=== PATIENT | female | born 1995 | race Caucasian/White ===

== ENCOUNTER 2020-05-07 17:59 | Emergency (ER) | payer OTHER, SELFPAY ==
[2020-05-07 18:11] VITALS: BP 142/84; BP 181/117; PULSE 100; PULSE 113; RESP 15; TEMP 36.7; O2SAT 95; O2SAT 97; BMI 24.2
--- NOTE | 2020-05-07 18:57 | XR_ITS ---
EXAMINATION: CHEST 1 VIEW CLINICAL INFORMATION: Wheezing. COMPARISON: December 16, 2019. TECHNIQUE: An AP view of the chest is provided. FINDINGS: The cardiac silhouette is not enlarged. The mediastinal and hilar contours are unremarkable. There are neither pleural effusions nor pneumothoraces. There are no consolidations. The osseous structures are unremarkable. XR/XR chest 1V IMPRESSION: No evidence for acute disease.
--- NOTE | 2020-05-07 19:09 | ECG_ITS ---
Test Reason : SOB Blood Pressure : / mmHG Vent. Rate : 117 BPM Atrial Rate : 117 BPM P-R Int : 122 ms QRS Dur : 072 ms QT Int : 326 ms P-R-T Axes : 052 043 045 degrees QTc Int : 454 ms Artifact in tracing Sinus tachycardia Otherwise normal ECG No previous ECGs available Referred By: Cruz Hall Electronically Signed By:BEBO MILLIGAN
[2020-05-07] MEDS: Albuterol/Iprat 2.5/0.5MG 3 ML AMPUL.NEB INHALE (19:31)
[2020-05-07 19:32] VITALS: PULSE 120; O2SAT 96
--- NOTE | 2020-05-07 19:35 | ED_ITS ---
HPI - Weakness General Chief complaint: Weakness Stated complaint: COVID+/HEADACHE? Time Seen by Provider: 05/07/20 18:35 Source: patient Mode of arrival: ambulatory Limitations: no limitations History of Present Illness HPI Narrative: Patient presents to ED for URI symptoms for 1 week. Patient states coughing, shortness of breath, wheezing, and chills. Patient states no history of asthma. Patient denies anyone else at home having similar symptoms. Patient states she was admitted last month for pneumonia. Related Data Previous Rx's Medication Instructions Recorded albuterol sulfate 2 puff INHALATION Q6H PRN #18 g 05/07/20 lisinopril-hydrochlorothiazide 1 tab PO DAILY #30 tab 05/07/20 Allergies Allergy/AdvReac Type Severity Reaction Status Date / Time No Known Allergies Allergy Unverified 02/13/20 18:32 [No Known Allergies*] Review of Systems Review of Systems: Yes all other systems are reviewed and are negative Constitutional: Constitutional: Reports as per HPI, Reports no additional co nstitutional complaints and Reports chills Eyes: Eyes: Reports as per HPI and Reports no additional eye complaints ENT: Reports system reviewed and no additional complaints, except as documented and Reports as per HPI Cardiovascular: Cardiovascular: Reports as per HPI, Reports no additional ca rdiovascular complaints and Reports dyspnea Respiratory: Respiratory: Reports as per HPI, Reports no additional respiratory complaints, Reports cough, Denies pain on inspiration, Reports dyspnea and Reports wheezing Gastrointestinal: Gastrointestinal: Reports as per HPI and Reports no additional gastrointestinal complaints Musculoskeletal: Musculoskeletal: Reports no additional musculoskeletal c omplaints and Reports as per HPI Neurologic: Reports system reviewed and no additional complaints, except as documented and Reports as per HPI Psychiatric: Psychiatric: Reports no additional psychiatric complaints and Reports as per HPI Allergic/Immunologic: Allergic/Immunologic: Reports wheezing PMF Social History Social History Alcohol intake: current Alcohol intake frequency: holidays/special occasions only Smoking Status: Current every day smoker Smoked in Last 30 Days: Yes Use of substances other than those prescribed or required for medical reasons: No Advance Directives: No Advance Directives Information Provided: Yes Physical Exam Vital Signs: Vital Signs: Last Vital Signs Temp 97.8 F 05/07/20 19:52 Pulse 114 H 05/07/20 22:59 Resp 15 05/07/20 22:59 BP 152/87 H 05/07/20 22:59 Pulse Ox 93 05/07/20 22:59 Body Mass Index 24.2 Const: General: cooperative, healthy appearing, comfortable, no acute distress, well developed, alert, awake and Physically active Ophelia ation/consciousness: patient oriented x3 HENMT: Head: Yes normal to inspection and Yes No palpable skull fracture present Eyes: General: appearance normal, both eyes and all related structures Neck: Neck: Yes normal visual inspection, Yes full ROM, Yes no lymphadenopathy, Yes no meningeal signs, Yes trachea midline, Yes supple and No tender Chest: Chest palpation & inspection: normal inspection of the chest, normal palpation of entire chest wall and no localized rib tenderness Resp: Effort & Inspection: normal respiratory effort, able to speak in complete sentences, no grunting, not labored, no nasal flaring, no paradoxical thoraco-abdom movements and no pursed lip breathing Auscultation: wheezes (diffuse) expiratory wheezes Cardio: Jugular venous distension: no JVD Heart sounds: S1 normal heart sound present and S2 normal heart sound present GI: Inspection: Yes normal to inspection and No abdominal wall ecchymosis Palpation (GI): Soft to palpation, not firm, nontender, no guarding and not rigid : General: No CVA tenderness Back/Spine/Pelvis: Back: no CVA tenderness, No CVA tenderness and No back tenderness Skin: General skin exam: no rashes or lesions noted Neuro: Other: Negative for facial droop. Negative pronator drift. Speech is normal. Motor and strength of all extremities are equal. Negative Romberg. finger to nose and rapid hand movement is intact. General: patient oriented x3, no meningeal signs and CN's II-XI intact bilaterally Cranial nerves: Yes CN's II-XII intact bilaterally Extrem: Other: Lower extremity negative for swelling, pitting edema, calf tenderness. General: Yes normal to inspection and Yes full ROM Psych: Appearance: grossly normal, well kempt and not disheveled Course Course Course Narrative: Patient has wheezing with no history of asthma. Patient will have x-ray . Patient will have IV fluids due to the cardia patient given albuterol inhaler. Patient also had basic labs. Patient had COVID swab. Reevaluation(s) Reevaluation #1: Patient's EKG shows sinus tach. Patient's D-dimer is negative. Patient's PERC score is 1. Troponin negative after 1 week of symptoms. Patient's TSH is normal. Patient's chest x-ray negative for pneumonia. Phy sical exam does not indicate stroke Time: 21:54 Reevaluation #2: Patient blood pressure in ED visit has been elevated. Spoke with patient she states she has a strong family history of high blood pressure. Patient denies ever having headache or dizziness. Patient has been informed in the past her blood pressure has been high, but has not been placed on any medication. Will start patient on hTcz-lisonopril combination and informeed to follow-up with PCP. Patient informed to document blood pressure readings 3 days a week. Head CT not indicated. Negative for signs of stroke. Diagnosis is Bronchitis. Patient is not toxic appearing Time: 22:00 MDM - Weakness MDM Narrative Medical decision making narrative: Bronchitis. High blood pressure Lab Data Result diagrams: 05/07/20 19:30 05/07/20 19:30 Labs: Lab Results 05/07/20 05/07/20 05/07/20 Range/Units 19:30 19:30 19:30 WBC 10.5 (4.8-10.8) X10*3/uL RBC 4.75 (4.20-5.50) X10*6/uL Hgb 14.6 (12.0-16.0) g/dl Hct 43.6 (37-47) % MCV 91.8 (80-98) fL MCH 30.7 (27.0-33.0) pg MCHC 33.5 (31.0-35.0) g/dl RDW 12.9 (11.0-16.0) % Plt Count 376 (160-400) X10*3/uL MPV 8.4 L (9.4-12.3) fL Immature Gran % (Auto) 0.2 (0.0-0.4) % Neut % (Auto) 71.1 (45-73) % Lymph % (Auto) 19.0 L (20-40) % [place] % (Auto) 6.9 (2-11) % Eos % (Auto) 2.1 (0-4) % Baso % (Auto) 0.7 (0-2) % Lymph # (Auto) 2.0 (1.2-4.9) X10*3/uL [place] # (Auto) 0.7 (0.1-1.2) X10*3/uL Eos # (Auto) 0.2 (0.0-0.4) X10*3/uL Baso # (Auto) 0.1 (0.0-0.2) X10*3/uL Abs Immat Gran (auto) 0.02 (0.00-0.03) X10*3/uL Absolute Neuts (auto) 7.4 (2.0-8.3) X10*3/uL Absolute Nucleated RBC 0.000 (0.0-0.012) X10*3/uL Nucleated RBC % (auto) 0.0 (0.0-0.2) /100WBC PT 12.5 (10.8-13.0) SEC INR 1.1 (0.9-1.1) APTT 30.1 (24.1-38.0) SEC D-Dimer < 200 NG/ML Sodium 139 (135-145) mmol/L Potassium 4.1 (3.3-5.1) mmol/l Chloride 104 (96-108) mmol/L Carbon Dioxide 24 (22-29) mmol/L Anion Gap 15 (12-20) BUN 7 L (9-16) mg/dL Creatinine 0.73 (0.5-1.4) mg/dL Estim Creat Clear Calc 88.7 Estimated GFR > 60 Random Glucose 105 (60-115) mg/dL Calcium 8.9 (8.4-10.2) mg/dL Ferritin 83 (10-122) ng/mL Total Bilirubin 0.5 (0.0-1.0) mg/dL AST 17 (5-31) U/L ALT 29 (0-31) U/L Alkaline Phosphatase 110 (39-117) U/L Lactate Dehydrogenase 164 (122-220) U/L Troponin I High Sens (<3.5-17.0) ng/L B-Natriuretic Peptide (<100) pg/mL Total Protein 7.2 (6.5-8.0) g/dL Albumin 4.1 (3.5-5.0) g/dL Procalcitonin ng/mL TSH 1.26 (0.32-4.0) uIU/mL Beta HCG, Quant mIU/mL Coronavirus (PCR) (Negative) Influenza Type A (PCR) (Negative) Influenza Type B (PCR) (Negative) RSV RNA Qual (PCR) (Negative) 05/07/20 05/07/20 05/07/20 Range/Units 19:30 19:30 19:30 WBC (4.8-10.8) X10*3/uL RBC (4.20-5.50) X10*6/uL Hgb (12.0-16.0) g/dl Hct (37-47) % MCV (80-98) fL MCH (27.0-33.0) pg MCHC (31.0-35.0) g/dl RDW (11.0-16.0) % Plt Count (160-400) X10*3/uL MPV (9.4-12.3) fL Immature Gran % (Auto) (0.0-0.4) % Neut % (Auto) (45-73) % Lymph % (Auto) (20-40) % [place] % (Auto) (2-11) % Eos % (Auto) (0-4) % Baso % (Auto) (0-2) % Lymph # (Auto) (1.2-4.9) X10*3/uL [place] # (Auto) (0.1-1.2) X10*3/uL Eos # (Auto) (0.0-0.4) X10*3/uL Baso # (Auto) (0.0-0.2) X10*3/uL Abs Immat Gran (auto) (0.00-0.03) X10*3/uL Absolute Neuts (auto) (2.0-8.3) X10*3/uL Absolute Nucleated RBC (0.0-0.012) X10*3/uL Nucleated RBC % (auto) (0.0-0.2) /100WBC PT (10.8-13.0) SEC INR (0.9-1.1) APTT (24.1-38.0) SEC D-Dimer NG/ML Sodium (135-145) mmol/L Potassium (3.3-5.1) mmol/l Chloride (96-108) mmol/L Carbon Dioxide (22-29) mmol/L Anion Gap (12-20) BUN (9-16) mg/dL Creatinine (0.5-1.4) mg/dL Estim Creat Clear Calc Estimated GFR Random Glucose (60-115) mg/dL Calcium (8.4-10.2) mg/dL Ferritin (10-122) ng/mL Total Bilirubin (0.0-1.0) mg/dL AST (5-31) U/L ALT (0-31) U/L Alkaline Phosphatase (39-117) U/L Lactate Dehydrogenase (122-220) U/L Troponin I High Sens < 3.5 (<3.5-17.0) ng/L B-Natriuretic Peptide < 10 (<100) pg/mL Total Protein (6.5-8.0) g/dL Albumin (3.5-5.0) g/dL Procalcitonin < 0.02 ng/mL TSH (0.32-4.0) uIU/mL Beta HCG, Quant mIU/mL Coronavirus (PCR) (Negative) Influenza Type A (PCR) (Negative) Influenza Type B (PCR) (Negative) RSV RNA Qual (PCR) (Negative) 05/07/20 05/07/20 Range/Units 19:30 20:01 WBC (4.8-10.8) X10*3/uL RBC (4.20-5.50) X10*6/uL Hgb (12.0-16.0) g/dl Hct (37-47) % MCV (80-98) fL MCH (27.0-33.0) pg MCHC (31.0-35.0) g/dl RDW (11.0-16.0) % Plt Count (160-400) X10*3/uL MPV (9.4-12.3) fL Immature Gran % (Auto) (0.0-0.4) % Neut % (Auto) (45-73) % Lymph % (Auto) (20-40) % [place] % (Auto) (2-11) % Eos % (Auto) (0-4) % Baso % (Auto) (0-2) % Lymph # (Auto) (1.2-4.9) X10*3/uL [place] # (Auto) (0.1-1.2) X10*3/uL Eos # (Auto) (0.0-0.4) X10*3/uL Baso # (Auto) (0.0-0.2) X10*3/uL Abs Immat Gran (auto) (0.00-0.03) X10*3/uL Absolute Neuts (auto) (2.0-8.3) X10*3/uL Absolute Nucleated RBC (0.0-0.012) X10*3/uL Nucleated RBC % (auto) (0.0-0.2) /100WBC PT (10.8-13.0) SEC INR (0.9-1.1) APTT (24.1-38.0) SEC D-Dimer NG/ML Sodium (135-145) mmol/L Potassium (3.3-5.1) mmol/l Chloride (96-108) mmol/L Carbon Dioxide (22-29) mmol/L Anion Gap (12-20) BUN (9-16) mg/dL Creatinine (0.5-1.4) mg/dL Estim Creat Clear Calc Estimated GFR Random Glucose (60-115) mg/dL Calcium (8.4-10.2) mg/dL Ferritin (10-122) ng/mL Total Bilirubin (0.0-1.0) mg/dL AST (5-31) U/L ALT (0-31) U/L Alkaline Phosphatase (39-117) U/L Lactate Dehydrogenase (122-220) U/L Troponin I High Sens (<3.5-17.0) ng/L B-Natriuretic Peptide (<100) pg/mL Total Protein (6.5-8.0) g/dL Albumin (3.5-5.0) g/dL Procalcitonin ng/mL TSH (0.32-4.0) uIU/mL Beta HCG, Quant < 2 mIU/mL Coronavirus (PCR) NEGATIVE (Negative) Influenza Type A (PCR) NEGATIVE (Negative) Influenza Type B (PCR) NEGATIVE (Negative) RSV RNA Qual (PCR) NEGATIVE (Negative) ECG Data Interpretation: Sinus tachycardia. Heart rate was 17. Pr interval 122. QRS 72. QTC 454. Negative STEMI Discharge Plan Discharge Clinical Impression: Bronchitis, Hypertension Patient Disposition: Home, Self-Care Instructions: Acute Bronchitis (ED), Hypertension (ED) Additional Instructions: Return to the ED for any headache, dizziness, nausea, vomiting, slurred speech, paralysis of extremities, calf pain, swelling of lower extremities, intractable fever, chills, coughing up blood, any other concerning symptoms. Please follow- up with your PCP. Prescriptions: New albuterol sulfate 90 mcg/actuation HFA aerosol inhaler 2 puff inhalation Q6H PRN (Reason: bronchitis) Qty: 18 RF: 0 lisinopril-hydrochlorothiazide 20-12.5 mg tablet 1 tab PO DAILY Qty: 30 RF: 0 Interventions: ED Discharge Assessment Last Done: 05/08/20 00:23 Discharge Date/Time: 05/08/20 00:24 Print Language: Khmer
[2020-05-07 19:38] LABS: MANUAL DIFF FLAG NO
[2020-05-07 19:40] LABS: Basophils Absolute Auto 0.1 X10*3/uL (0.0-0.2); Basophils Percent Auto 0.7 % (0-2); Eosinophils Absolute Auto 0.2 X10*3/uL (0.0-0.4); Eosinophils Percent Auto 2.1 % (0-4); Hematocrit 43.6 % (37-47); Hemoglobin 14.6 g/dl (12.0-16.0); Imm Gran Abs Auto 0.02 X10*3/uL (0.00-0.03); Imm Gran Pct Auto 0.2 % (0.0-0.4); Mean Corpuscular HGB Conc 33.5 g/dl (31.0-35.0); Mean Corpuscular Hemoglobin 30.7 pg (27.0-33.0); Mean Corpuscular Volume 91.8 fL (80-98); Mean Platelet Volume 8.4 fL (9.4-12.3); Monocytes Absolute Auto 0.7 X10*3/uL (0.1-1.2); Monocytes Percent Auto 6.9 % (2-11); Neutrophils Absolute Auto 7.4 X10*3/uL (2.0-8.3); Neutrophils Percent Auto 71.1 % (45-73); Platelet Count 376 X10*3/uL (160-400); Red Blood Count 4.75 X10*6/uL (4.20-5.50); Red Cell Distribution Width 12.9 % (11.0-16.0); White Blood Count 10.5 X10*3/uL (4.8-10.8)
[2020-05-07 19:46] LABS: INTERNATIONAL NORM RATIO 1.1 (0.9-1.1); Prothrombin Time 12.5 SEC (10.8-13.0)
[2020-05-07 19:48] LABS: Partial Thromboplastin Time 30.1 SEC (24.1-38.0)
[2020-05-07] MEDS: 0.9 % Sodium Chloride 1,000 ML 999 ML IVCONT ×2 (19:48)
[2020-05-07 19:50] LABS: D Dimer < 200 NG/ML
[2020-05-07 19:52] VITALS: BP 146/108; PULSE 120; RESP 17; TEMP 36.6; O2SAT 97
[2020-05-07 20:11] LABS: Alanine Aminotransferase 29 U/L (0-31); Albumin Level 4.1 g/dL (3.5-5.0); Alkaline Phosphatase 110 U/L (39-117); Anion Gap 15 (12-20); Aspartate Amino Transferase 17 U/L (5-31); Bilirubin Total 0.5 mg/dL (0.0-1.0); Blood Urea Nitrogen 7 mg/dL (9-16); Calcium 8.9 mg/dL (8.4-10.2); Carbon Dioxide 24 mmol/L (22-29); Chloride 104 mmol/L (96-108); Creatinine Clr Calc Pharmacy 88.7; Estimated Glomerular Filt Rate > 60; Glucose Random 105 mg/dL (60-115); Lactate Dehydrogenase 164 U/L (122-220); Potassium 4.1 mmol/l (3.3-5.1); Sodium 139 mmol/L (135-145); Total Protein 7.2 g/dL (6.5-8.0)
[2020-05-07 20:17] LABS: B Type Natriuretic Peptide < 10 pg/mL (<100)
[2020-05-07 20:18] LABS: HCG Quantitative < 2 mIU/mL; Troponin-I High Sensitivity < 3.5 ng/L (<3.5-17.0)
[2020-05-07 20:26] LABS: Procalcitonin < 0.02 ng/mL
[2020-05-07 20:56] LABS: Influenza A PCR NEGATIVE (Negative); Influenza B PCR NEGATIVE (Negative); Resp Syncy Virus RNA Qual PCR NEGATIVE (Negative); SARS COV2 PCR INHOUSE NEGATIVE (Negative)
[2020-05-07 21:16] LABS: Ferritin 83 ng/mL (10-122); Thyroid Stimulating Hormone 1.26 uIU/mL (0.32-4.0)
[2020-05-07 21:25] VITALS: BP 158/93; PULSE 107; RESP 16; O2SAT 93
[2020-05-07 22:59] VITALS: BP 152/87; PULSE 114; RESP 15; O2SAT 93
--- NOTE | 2020-05-08 00:22 | PC.NURSE ---
WENT TO [facility] PT AND PT IS NOT PRESENT IN ROOM.
== END 2020-05-08 00:24 | disposition home or self-care (01) ==
PROVIDERS: Physician Assistant; Emergency Provider Internal Medicine
DX: J20.9 Acute bronchitis, unspecified (principal); Z20.828 Contact with and (suspected) exposure to other viral communicable diseases; I10 Essential (primary) hypertension; F17.200 Nicotine dependence, unspecified, uncomplicated; Z87.01 Personal history of pneumonia (recurrent)
CPT/HCPCS: 0241U; 36415; 71045; 80053; 82728; 83615; 83880; 84145; 84443; 84484; 84702; 85025; 85379; 85610; 85730; 93005; 94640; 99284

== ENCOUNTER 2020-05-26 00:42 | Inpatient (IN) | payer OTHER, SELFPAY ==
[2020-05-26] VITALS (22 sets, daily range): BP systolic 90–141; BP diastolic 47–100; PULSE 98–137; RESP 14–21; TEMP 36.6–37.4; O2SAT 3–100; BMI 26.2; BMI 25.6
--- NOTE | 2020-05-26 | US_ITS ---
EXAMINATION: US VENOUS ULTRASOUND WITH DOPPLER LOWER EXTREMITY, BILATERAL CLINICAL INFORMATION: Difficulty breathing. COMPARISON: None TECHNIQUE: Ultrasound of the deep veins is performed from the hip to the calf with compression sonography and color and pulse Doppler assessment. Spectral analysis with color-flow imaging is performed. FINDINGS: RIGHT: There is normal venous compression and respiratory variation and augmented flow. The visualized common femoral vein, superficial femoral vein, profunda femoral vein, popliteal vein, and the trifurcation region shows no evidence of deep venous thrombosis. There is no significant popliteal fossa cyst. LEFT: There is normal venous compression and respiratory variation and augmented flow. The visualized common femoral vein, superficial femoral vein, profunda femoral vein, popliteal vein, and the trifurcation region shows no evidence of deep venous thrombosis. There is no significant popliteal fossa cyst. If the patient's symptoms persist, followup ultrasound in 5 days 7 days might be of value to exclude proximal propagation from a non-visualized calf vein. US/US venous duplex LE BI IMPRESSION: No evidence for deep venous thrombosis in the bilateral lower extremities.
--- NOTE | 2020-05-26 01:00 | XR_ITS ---
EXAMINATION: XR CHEST CLINICAL INFORMATION: Shortness of breath COMPARISON: 05/07/2020 TECHNIQUE: Frontal view of the chest was obtained. FINDINGS: Cardiac leads overlie the chest. The lungs are hyperexpanded to the 11th posterior ribs. No consolidation, edema, or effusion. No pneumothorax. The cardiomediastinal silhouette is within normal limits. No acute osseous abnormality. XR/XR chest 1V IMPRESSION: Hyperexpanded, clear lungs.
--- NOTE | 2020-05-26 01:00 | ECG_ITS ---
Test Reason : SOB Blood Pressure : / mmHG Vent. Rate : 106 BPM Atrial Rate : 106 BPM P-R Int : 122 ms QRS Dur : 070 ms QT Int : 352 ms P-R-T Axes : 077 -30 051 degrees QTc Int : 467 ms Sinus tachycardia Left axis deviation Abnormal ECG When compared with ECG of 07-MAY-2020 19:52, Nonspecific T wave abnormality no longer evident in Anterior leads Referred By: Chantel Holguin Electronically Signed By:BEBO MILLIGAN
--- NOTE | 2020-05-26 01:04 | ED.GENADULT ---
HPI - General Adult General Chief complaint: Dyspnea Stated complaint: sob Time Seen by Provider: 05/26/20 00:58 Source: patient and EMS Mode of arrival: EMS Limitations: no limitations History of Present Illness HPI narrative: Patient comes to emergency room complaining of shortness of breath. Patient states he woke up this night complaining of shortness of breath, cough. EN route to the hospital, EMS gave her on nebulization treatment and Solu-Medrol 125 mg. Per EMS, on their arrival to the patient's house, patient had an oxygen saturation of 80% on room air, she was given an albuterol neb, 60 years of oxygen and her oxygen increased to 95%. Patient states that she has no history of asthma. However, patient states that since last April she has been having several episodes of bronchitis and pneumonia, she has never fully recovered. Patient was hospitalized in August of 2019 for respiratory failure and presumptive COVID-19 infection. At this time, patient complaining of shortness of breath. Patient denies any recent known exposure to COVID-19, denies cough, no fever, only complaint is shortness of breath. Patient denies taking any steroids or antibiotics in the last few weeks MD complaint: Shortness of breath Related Data Previous Rx's Medication Instructions Recorded albuterol sulfate 2 puff INHALATION Q6H PRN #18 g 05/07/20 lisinopril-hydrochlorothiazide 1 tab PO DAILY #30 tab 05/07/20 Allergies Allergy/AdvReac Type Severity Reaction Status Date / Time No Known Allergies Allergy Unverified 02/13/20 18:32 [No Known Allergies*] Review of Systems Review of Systems: Constitutional : No Weight loss, No Fever, No Chills, No Night Sweats, No Fatigue, No Malaise ENT/Mouth : No Hearing loss, No Ear Pain, No Nasal Congestion, No Sinus Pain, No Hoarseness, No sore throat, No Rhinorrhea, No Swallowing Difficulty Eyes: No Eye Pain, No Swelling, No Redness, No Foreign Body, No Discharge, No Vision Changes Cardiovascular : No Chest Pain, No SOB, No Dyspnea on Exertion, No Orthopnea, No Edema, No Palpitations Respiratory : No Cough, No Sputum, complaining of wheezing and dyspnea Gastrointestinal : No Nausea, No Vomiting, No Diarrhea, No Constipation, No abdominal Pain, No Hematochezia, No Melena Genitourinary : no irregular bleeding, No Dysuria, No Urinary Frequency, No Hematuria, No Urinary Incontinence, No Urgency, No Flank Pain, No Urinary Flow Changes, No Hesitancy Musculoskeletal : No joint pain, No Myalgias, No Joint Swelling Skin : No Skin Lesions, No rash Neuro : No Weakness, No Numbness, No Paresthesias, No Loss of Consciousness, No Dizziness, No Headache Psych : No Anxiety/Panic, No Depression, No SI/HI/AH/VH, No Social Issues, Heme/Lymph: No Bruising, No Bleeding,No Lymphadenopathy Endocrine : No Polyuria, No Polydipsia, No Temperature Intolerance [facility] Past Medical History Medical History Asthma Social History Social History Alcohol intake: current Alcohol intake frequency: holidays/special occasions only Smoking Status: Current every day smoker Smoked in Last 30 Days: Yes Use of substances other than those prescribed or required for medical reasons: Yes Advance Directives: No Advance Directives Information Provided: No Physical Exam Vital Signs: Vital Signs: Last Vital Signs Temp 98.5 F 05/26/20 02:00 Pulse 129 H 05/26/20 03:18 Resp 19 05/26/20 03:00 BP 125/77 05/26/20 02:00 Pulse Ox 96 05/26/20 02:00 Body Mass Index 26.2 Appearance: Alert. Oriented X3. No acute distress. Seems short of breath, speaking in short sentences Eyes: Pupils equal, round and reactive to light. ENT: Pharynx normal. Neck: Normal inspection. Neck supple. No lymph nodes noted. No crepitus CVS: Normal heart rate and rhythm. Pulses normal. Normal S1 and S2 Respiratory: Mild respiratory distress, bilateral diffuse wheezing, moderate air movement Abdomen: Soft and nontender. No rigidity. No distention. good BS x4 Skin: Skin warm and dry. Normal skin color. Normal skin turgor. Extremities: No lower extremity edema. No lower extremity edema. No Lacerations. No Rash Neuro: Oriented X 3. No motor deficit. No sensory deficit. Moving all extermities. No slurred speech. Course Course Course Narrative: Patient continues wheezing, initially patient was admitted to the floor, however while patient was on the bedpan, her oxygen saturation dropped to the high 80s, patient was started on CPAP. Patient being admitted to the unit, patient's oxygen saturation is 100% At this time, sepsis is not suspected, pneumonia is not suspected either. Likely asthma exacerbation. Antibiotics are not indicated at this time. Lactic acid likely secondary to hypoxia earlier today before patient arrived to the emergency room, and multiple albuterol treatments Patient is not on CPAP, saturating 100%. Patient was given 1 mg of Ativan for anxiety. I discussed the patient with Dr. Hinojosa, patient will be going to the unit. Patient's troponin increased from 21.9 to 54.3, likely secondary to demand ischemia. No EKG changes. ICU nurse practitioner aware. Dry chest CT scan pending Patient admitted to intensive care unit. Patient will be boarding in the emergency room, sign-out given to Dr. Dillon. At this time, patient is stable, oxygen saturation 100% on CPAP, patient gets easily agitated and gets panic attacks. After the dry CT, patient may be weaned off BiPAP Medical Decision Making Lab Data Result diagrams: 05/26/20 01:31 05/26/20 01:31 Labs: Lab Results 05/26/20 05/26/20 05/26/20 Range/Units 01:31 01:31 01:31 WBC 11.7 H (4.8-10.8) X10*3/uL RBC 4.71 (4.20-5.50) X10*6/uL Hgb 14.4 (12.0-16.0) g/dl Hct 43.9 (37-47) % MCV 93.2 (80-98) fL MCH 30.6 (27.0-33.0) pg MCHC 32.8 (31.0-35.0) g/dl RDW 12.8 (11.0-16.0) % Plt Count 317 (160-400) X10*3/uL MPV 8.9 L (9.4-12.3) fL Immature Gran % (Auto) 0.2 (0.0-0.4) % Neut % (Auto) 77.1 H (45-73) % Lymph % (Auto) 14.5 L (20-40) % [place] % (Auto) 5.1 (2-11) % Eos % (Auto) 2.6 (0-4) % Baso % (Auto) 0.5 (0-2) % Lymph # (Auto) 1.7 (1.2-4.9) X10*3/uL [place] # (Auto) 0.6 (0.1-1.2) X10*3/uL Eos # (Auto) 0.3 (0.0-0.4) X10*3/uL Baso # (Auto) 0.1 (0.0-0.2) X10*3/uL Abs Immat Gran (auto) 0.02 (0.00-0.03) X10*3/uL Absolute Neuts (auto) 9.0 H (2.0-8.3) X10*3/uL Absolute Nucleated RBC 0.000 (0.0-0.012) X10*3/uL Nucleated RBC % (auto) 0.0 (0.0-0.2) /100WBC D-Dimer NG/ML Sodium 140 (135-145) mmol/L Potassium 3.8 (3.3-5.1) mmol/l Chloride 105 (96-108) mmol/L Carbon Dioxide 23 (22-29) mmol/L Anion Gap 16 (12-20) BUN 13 D (9-16) mg/dL Creatinine 0.79 (0.5-1.4) mg/dL Estim Creat Clear Calc 85.1 Estimated GFR > 60 Random Glucose 128 H (60-115) mg/dL Lactic Acid (0.5-2.0) mmol/L Calcium 8.6 (8.4-10.2) mg/dL Troponin I High Sens (<3.5-17.0) ng/L Urine Color Urine Appearance Urine pH (5.0-8.0) Ur Specific [place] (1.005-1.025) Urine Protein (NEG-TRACE) MG/DL Urine Glucose (UA) (NEG) MG/DL Urine Ketones (NEG) MG/DL Urine Blood (NEG) Urine Nitrite (NEG) Ur Leukocyte Esterase (NEG) Urine RBC (0) /HPF Urine WBC (0-4) /HPF Ur Squamous Epith Cells /LPF Urine Bacteria /LPF COVID-19 (ROSALIND) Negative (Negative) COVID-19 Clin Com See Note 05/26/20 05/26/20 05/26/20 Range/Units 01:31 01:31 01:31 WBC (4.8-10.8) X10*3/uL RBC (4.20-5.50) X10*6/uL Hgb (12.0-16.0) g/dl Hct (37-47) % MCV (80-98) fL MCH (27.0-33.0) pg MCHC (31.0-35.0) g/dl RDW (11.0-16.0) % Plt Count (160-400) X10*3/uL MPV (9.4-12.3) fL Immature Gran % (Auto) (0.0-0.4) % Neut % (Auto) (45-73) % Lymph % (Auto) (20-40) % [place] % (Auto) (2-11) % Eos % (Auto) (0-4) % Baso % (Auto) (0-2) % Lymph # (Auto) (1.2-4.9) X10*3/uL [place] # (Auto) (0.1-1.2) X10*3/uL Eos # (Auto) (0.0-0.4) X10*3/uL Baso # (Auto) (0.0-0.2) X10*3/uL Abs Immat Gran (auto) (0.00-0.03) X10*3/uL Absolute Neuts (auto) (2.0-8.3) X10*3/uL Absolute Nucleated RBC (0.0-0.012) X10*3/uL Nucleated RBC % (auto) (0.0-0.2) /100WBC D-Dimer < 200 NG/ML Sodium (135-145) mmol/L Potassium (3.3-5.1) mmol/l Chloride (96-108) mmol/L Carbon Dioxide (22-29) mmol/L Anion Gap (12-20) BUN (9-16) mg/dL Creatinine (0.5-1.4) mg/dL Estim Creat Clear Calc Estimated GFR Random Glucose (60-115) mg/dL Lactic Acid 2.1 H* (0.5-2.0) mmol/L Calcium (8.4-10.2) mg/dL Troponin I High Sens 21.9 H D (<3.5-17.0) ng/L Urine Color Urine Appearance Urine pH (5.0-8.0) Ur Specific [place] (1.005-1.025) Urine Protein (NEG-TRACE) MG/DL Urine Glucose (UA) (NEG) MG/DL Urine Ketones (NEG) MG/DL Urine Blood (NEG) Urine Nitrite (NEG) Ur Leukocyte Esterase (NEG) Urine RBC (0) /HPF Urine WBC (0-4) /HPF Ur Squamous Epith Cells /LPF Urine Bacteria /LPF COVID-19 (ROSALIND) (Negative) COVID-19 Clin Com 05/26/20 05/26/20 Range/Units 03:05 03:05 WBC (4.8-10.8) X10*3/uL RBC (4.20-5.50) X10*6/uL Hgb (12.0-16.0) g/dl Hct (37-47) % MCV (80-98) fL MCH (27.0-33.0) pg MCHC (31.0-35.0) g/dl RDW (11.0-16.0) % Plt Count (160-400) X10*3/uL MPV (9.4-12.3) fL Immature Gran % (Auto) (0.0-0.4) % Neut % (Auto) (45-73) % Lymph % (Auto) (20-40) % [place] % (Auto) (2-11) % Eos % (Auto) (0-4) % Baso % (Auto) (0-2) % Lymph # (Auto) (1.2-4.9) X10*3/uL [place] # (Auto) (0.1-1.2) X10*3/uL Eos # (Auto) (0.0-0.4) X10*3/uL Baso # (Auto) (0.0-0.2) X10*3/uL Abs Immat Gran (auto) (0.00-0.03) X10*3/uL Absolute Neuts (auto) (2.0-8.3) X10*3/uL Absolute Nucleated RBC (0.0-0.012) X10*3/uL Nucleated RBC % (auto) (0.0-0.2) /100WBC D-Dimer NG/ML Sodium (135-145) mmol/L Potassium (3.3-5.1) mmol/l Chloride (96-108) mmol/L Carbon Dioxide (22-29) mmol/L Anion Gap (12-20) BUN (9-16) mg/dL Creatinine (0.5-1.4) mg/dL Estim Creat Clear Calc Estimated GFR Random Glucose (60-115) mg/dL Lactic Acid (0.5-2.0) mmol/L Calcium (8.4-10.2) mg/dL Troponin I High Sens 54.3 H D (<3.5-17.0) ng/L Urine Color STRAW Urine Appearance HAZY Urine pH 6.0 (5.0-8.0) Ur Specific [place] >= 1.030 H (1.005-1.025) Urine Protein 1+ H (NEG-TRACE) MG/DL Urine Glucose (UA) NEG (NEG) MG/DL Urine Ketones 40 (NEG) MG/DL Urine Blood 3+ H (NEG) Urine Nitrite NEG (NEG) Ur Leukocyte Esterase NEG (NEG) Urine RBC 5-9 H (0) /HPF Urine WBC 0 (0-4) /HPF Ur Squamous Epith Cells TRACE /LPF Urine Bacteria NONE /LPF COVID-19 (ROSALIND) (Negative) COVID-19 Clin Com Imaging Data Chest x-ray: Radiologist's impression: Cardiac leads overlie the chest. The lungs are hyperexpanded to the 11th posterior ribs. No consolidation, edema, or effusion. No pneumothorax. The cardiomediastinal silhouette is within normal limits. No acute osseous abnormality. XR/XR chest 1V IMPRESSION: Hyperexpanded, clear lungs. ECG Data Attestation: I personally reviewed and interpreted this ECG as follows: (Sinus tachycardia, heart rate 106, no ST segment depressions or elevations on O2 inversions) Discharge Plan Discharge Clinical Impression: Asthma with exacerbation Qualifiers: Asthma severity: unspecified severity Asthma persistence: unspecified Qualified Code(s): J45.901 - Unspecified asthma with (acute) exacerbation Patient Disposition: Admitted As Inpatient
[2020-05-26] MEDS: Albuterol Sulfate (0.083%) 2.5 MG/3 ML VIAL.NEB 10 MG INHALE ×2 (01:12→03:16)
[2020-05-26 01:36] LABS: Basophils Absolute Auto 0.1 X10*3/uL (0.0-0.2); Basophils Percent Auto 0.5 % (0-2); Eosinophils Absolute Auto 0.3 X10*3/uL (0.0-0.4); Eosinophils Percent Auto 2.6 % (0-4); Hematocrit 43.9 % (37-47); Hemoglobin 14.4 g/dl (12.0-16.0); Imm Gran Abs Auto 0.02 X10*3/uL (0.00-0.03); Imm Gran Pct Auto 0.2 % (0.0-0.4); Lymphocytes Absolute Auto 1.7 X10*3/uL (1.2-4.9); Lymphocytes Percent Auto 14.5 % (20-40); Mean Corpuscular HGB Conc 32.8 g/dl (31.0-35.0); Mean Corpuscular Hemoglobin 30.6 pg (27.0-33.0); Mean Corpuscular Volume 93.2 fL (80-98); Mean Platelet Volume 8.9 fL (9.4-12.3); Monocytes Absolute Auto 0.6 X10*3/uL (0.1-1.2); Monocytes Percent Auto 5.1 % (2-11); Neutrophils Percent Auto 77.1 % (45-73); Platelet Count 317 X10*3/uL (160-400); Red Blood Count 4.71 X10*6/uL (4.20-5.50); Red Cell Distribution Width 12.8 % (11.0-16.0); White Blood Count 11.7 X10*3/uL (4.8-10.8)
[2020-05-26 01:38] LABS: MANUAL DIFF FLAG NO
[2020-05-26 01:52] LABS: COVID-19 Test Negative (Negative)
[2020-05-26 01:54] LABS: Lactic Acid 2.1 mmol/L (0.5-2.0)
[2020-05-26 02:05] LABS: Anion Gap 16 (12-20); Blood Urea Nitrogen 13 mg/dL (9-16); Calcium 8.6 mg/dL (8.4-10.2); Carbon Dioxide 23 mmol/L (22-29); Chloride 105 mmol/L (96-108); Creatinine Clr Calc Pharmacy 85.1; Estimated Glomerular Filt Rate > 60; Glucose Random 128 mg/dL (60-115); Potassium 3.8 mmol/l (3.3-5.1); Sodium 140 mmol/L (135-145)
[2020-05-26] MEDS: Magnesium Sulfate/H2O 2 GM/50 ML PIGGYBACK IV (02:08)
[2020-05-26] MEDS: 0.9 % Sodium Chloride 1,000 ML 999 ML IVCONT (02:08)
[2020-05-26 02:23] LABS: Troponin-I High Sensitivity 21.9 ng/L (<3.5-17.0)
[2020-05-26 02:36] LABS: D Dimer < 200 NG/ML
[2020-05-26] MEDS: Albuterol Sulfate (0.083%) 2.5 MG/3 ML VIAL.NEB 5 MG INHALE (03:15)
[2020-05-26] MEDS: LORazepam 2 MG/ML VIAL 1 MG IVPUSH (03:17)
--- NOTE | 2020-05-26 03:17 | CT_ITS ---
EXAMINATION: CT CHEST WITHOUT CONTRAST CLINICAL INFORMATION: Hypoxia COMPARISON: Radiograph from earlier today TECHNIQUE: Multidetector volumetric CT imaging of the chest was done. Axial MIP volume rendering provided. Sagittal and coronal reformatted images were obtained. This CT examination was performed using dose optimization techniques as appropriate, variously including the following: *Automated exposure control *Adjustment of mA and/or kV according to patient size (this includes techniques or standardized protocols for targeted exams where dose is matched to indication/reason for exam; i.e. extremities or head) *Use of iterative reconstruction technique DLP: 257 mGy-cm FINDINGS: LUNGS: The central airways are patent. Mild bronchial wall thickening is noted. Scattered bronchial filling defects. No dense consolidation. Groundglass opacity seen centrally in the right lower lobe the perihilar region. MEDIASTINUM: Normal heart size. No pericardial effusion. No mediastinal lymphadenopathy. PLEURA: There is no pleural effusion. No pleural mass or thickening. AXILLA: No lymphadenopathy. UPPER ABDOMEN: Unremarkable. OSSEOUS STRUCTURES: Unremarkable. CT/CT chest wo con IMPRESSION: Mild bronchial wall thickening with scattered bronchial filling defects, suggestive of a small airways process such as asthma or atypical/viral infection. Superimposed focal groundglass opacity in the right perihilar region.
--- NOTE | 2020-05-26 03:18 | PC.NURSE ---
MED DRAWN AND GIVEN TO FACILITATE BIPAP.
--- NOTE | 2020-05-26 03:19 | PC.NURSE ---
ATIVAN VIAL THROW PRIOR TO SCANNING. RT AT BEDSIDE WITNESSING MED ADMINSTRATION.
--- NOTE | 2020-05-26 03:21 | PC.NURSE ---
EVENT NOTE: AT APPROXIMATELY,0250 AGATA KOCH WAS ASSISTING PATIENT TO BEDPAN, PRIOR TO POSITION CHANGE 96% RA. , PT HAD SATURATION DROP TO 90%, INCREASED WORK OF BREATHING, 38/MIN, SHALLOW.DURING POSITION CHANGE TO BED ENRIQUEZ. THIS RN TO BEDSIDE. LUNGSOUNDS ADVENTITIOUS, WHEEZING HEARD IN ALL MARRUFO. PT INCREASED TO 4L NC.MD CALLED TO BEDSIDE. 5MG NEB PULLED. ATTEMPTED TO GIVE VIA NEBULIZER. PT SWITCHED TO NRB. RT TO BED PATIENT PLACED ON BIPAP. MEDICATED WITH ATIVAN TO FACILITATE BIPAP. MONITORING AT THIS TIME.
[2020-05-26 03:23] LABS: Glucose Urine UA NEG (NEG); Leukocyte Esterase Urine NEG (NEG); Nitrite Urine NEG (NEG); Specific Gravity - Urine >= 1.030 (1.005-1.025); Urine Blood 3+ (NEG); Urine Ketones 40 MG/DL (NEG); Urine Protein 1+ MG/DL (NEG-TRACE)
--- NOTE | 2020-05-26 03:31 | PC.NURSE ---
PER RT, MD AWARE OF HR. OKAY AT THIS TIME. PLAN TO FINISH 2ND HR LONG TREATMENT, THEN TRANSPORT TO CT. ALL PARTIES IN AGREEMENT.
[2020-05-26 03:33] LABS: Appearance Urine HAZY; Color Urine STRAW
[2020-05-26 03:34] LABS: Reflex Lactate? Lactic Acid Added
[2020-05-26 03:39] LABS: Squamous Epithelial Cell Urine TRACE /LPF; WBC Urine 0 /HPF (0-4)
[2020-05-26 03:43] LABS: Troponin-I High Sensitivity 54.3 ng/L (<3.5-17.0)
[2020-05-26 03:56] LABS: Influenza A PCR NEGATIVE (Negative); Influenza B PCR NEGATIVE (Negative); Resp Syncy Virus RNA Qual PCR NEGATIVE (Negative); SARS COV2 PCR INHOUSE NEGATIVE (Negative)
[2020-05-26] MEDS: ondansetron HCL 4 MG/2 ML VIAL IVPUSH (03:56)
--- NOTE | 2020-05-26 03:59 | PM.CCHP ---
History of Present Illness Date of Service: 05/26/20 Chief Complaint: dyspnea Patient is a 24-year-old female with within on clear past medical history who was BIBA complaining of shortness of breath. According to ED records, the patient woke up a few hours ago coughing and short of breath, she called 911. Upon arrival at the patient's home, EMS states she was satting at 80% on room air, EMS gave her a nebulizer treatment and Solu-Medrol 125 mg, 6L oxygen and patient's oxygen saturation increased to 95%. Patient has no documented history of asthma but for the last year she has been having episodes of bronchitis and pneumonia and feels she never fully recovered. Patient was hospitalized in August 2019 with presumptive COVID-19 infection and respiratory failure. Today, patient denies fever or sick contacts. Patient had a 2nd episode of hypoxia as she was getting on the bedpan in the ED which prompted the use of CPAP. However, during my exam, she was more comfortable, breathing easier and setting at 100% on Bipap 10/5 FiO2 50% and had no other complaints. Labs in the ED were remarkable for white blood cell count 11.7, D-dimer negative, lactic acid 2.1 although sepsis is not suspected as elevation is likely 2/2 hypoxia, troponin 21.9, the 2nd troponin was 54.3, likely due to demand ischemia. Chest x-ray showed hyperexpanded lungs. EKG was sinus tach with a heart rate of 106, patient was given 1 hour long nebulizer treatment in the emergency department. Dry CT chest pending. Of note, patient is also taking lisinopril/HCTZ but claims she has no primary care doctor. Review of Systems Review of Systems: Yes all other systems are reviewed and are negative [facility] Past Medical History Medical History (Updated 05/26/20 @ 11:05 by Robi Hinojosa MD) Asthma Opioid abuse Status asthmaticus with COPD (chronic obstructive pulmonary disease) Social History Social History Household Members: Family Housing: House Alcohol intake: current Alcohol intake frequency: holidays/special occasions only Smoking Status: Current every day smoker Tobacco Type: Cigarette Packs Per Day: 0.5 Cigarettes Per Day: 10.0 Years Smoked: 4 Substance Use Type: Heroin Meds Allergies Allergy/AdvReac Type Severity Reaction Status Date / Time No Known Allergies Allergy Unverified 02/13/20 18:32 [No Known Allergies*] Physical Exam Vital Signs: Vital Signs: Last Vital Signs Temp 98.5 F 05/26/20 02:00 Pulse 129 H 05/26/20 03:18 Resp 19 05/26/20 03:00 BP 125/77 05/26/20 02:00 Pulse Ox 96 05/26/20 02:00 Body Mass Index 26.2 Const: General: cooperative, healthy appearing, comfortable, no acute distress, well developed and anxious Nutritional Appearance: average body habitus Orientation/consciousness: patient oriented x3 HENMT: Head: Yes normal to inspection Eyes: General: appearance normal, both eyes and all related structures Pupils: Equal, round and reactive pupils present EOM: EOMs intact bilaterally Neck: Neck: Yes normal visual inspection, Yes full ROM, Yes no meningeal signs, Yes trachea midline and Yes supple Chest: Chest palpation & inspection: normal inspection of the chest Resp: Effort & Inspection: respiratory distress (mild) and other (Patient is speaking in short sentences, on CPAP) Auscultation: wheezes expiratory wheezes, inspiratory wheezes and scattered wheezes Cardio: Rate: tachycardic Rhythm: regular rhythm Heart sounds: normal S1 and S2 Skin: General skin exam: no rashes or lesions noted Neuro: General: patient oriented x3 and no meningeal signs Cranial nerves: Yes Equal, round and reactive pupils present Extrem: General: Yes normal to inspection and Yes no pedal edema Results Labs CBC and Chem 7: 05/26/20 13:08 05/26/20 13:08 Labs: Laboratory Results - last 24 hr 05/26/20 05/26/20 05/26/20 01:31 01:31 01:31 MCV 93.2 MCH 30.6 MCHC 32.8 RDW 12.8 Plt Count 317 MPV 8.9 L Immature Gran % (Auto) 0.2 Neut % (Auto) 77.1 H Lymph % (Auto) 14.5 L [place] % (Auto) 5.1 Eos % (Auto) 2.6 Baso % (Auto) 0.5 Lymph # (Auto) 1.7 [place] # (Auto) 0.6 Eos # (Auto) 0.3 Baso # (Auto) 0.1 Abs Immat Gran (auto) 0.02 Absolute Neuts (auto) 9.0 H Absolute Nucleated RBC 0.000 Nucleated RBC % (auto) 0.0 D-Dimer Anion Gap 16 Estim Creat Clear Calc 85.1 Estimated GFR > 60 Random Glucose 128 H Lactic Acid Calcium 8.6 Troponin I High Sens Urine Color Urine Appearance Urine pH Ur Specific [place] Urine Protein Urine Glucose (UA) Urine Ketones Urine Blood Urine Nitrite Ur Leukocyte Esterase Urine RBC Urine WBC Ur Squamous Epith Cells Urine Bacteria COVID-19 (ROSALIND) Negative COVID-19 Clin Com See Note 05/26/20 05/26/20 05/26/20 01:31 01:31 01:31 MCV MCH MCHC RDW Plt Count MPV Immature Gran % (Auto) Neut % (Auto) Lymph % (Auto) [place] % (Auto) Eos % (Auto) Baso % (Auto) Lymph # (Auto) [place] # (Auto) Eos # (Auto) Baso # (Auto) Abs Immat Gran (auto) Absolute Neuts (auto) Absolute Nucleated RBC Nucleated RBC % (auto) D-Dimer < 200 Anion Gap Estim Creat Clear Calc Estimated GFR Random Glucose Lactic Acid 2.1 H* Calcium Troponin I High Sens 21.9 H D Urine Color Urine Appearance Urine pH Ur Specific [place] Urine Protein Urine Glucose (UA) Urine Ketones Urine Blood Urine Nitrite Ur Leukocyte Esterase Urine RBC Urine WBC Ur Squamous Epith Cells Urine Bacteria COVID-19 (ROSALIND) COVID-19 Clin Com 05/26/20 05/26/20 03:05 03:05 MCV MCH MCHC RDW Plt Count MPV Immature Gran % (Auto) Neut % (Auto) Lymph % (Auto) [place] % (Auto) Eos % (Auto) Baso % (Auto) Lymph # (Auto) [place] # (Auto) Eos # (Auto) Baso # (Auto) Abs Immat Gran (auto) Absolute Neuts (auto) Absolute Nucleated RBC Nucleated RBC % (auto) D-Dimer Anion Gap Estim Creat Clear Calc Estimated GFR Random Glucose Lactic Acid Calcium Troponin I High Sens 54.3 H D Urine Color STRAW Urine Appearance HAZY Urine pH 6.0 Ur Specific [place] >= 1.030 H Urine Protein 1+ H Urine Glucose (UA) NEG Urine Ketones 40 Urine Blood 3+ H Urine Nitrite NEG Ur Leukocyte Esterase NEG Urine RBC 5-9 H Urine WBC 0 Ur Squamous Epith Cells TRACE Urine Bacteria NONE COVID-19 (ROSALIND) COVID-19 Clin Com Imaging Radiologist's Impressions: Impressions Chest X-Ray 05/26/20 01:00 IMPRESSION: Hyperexpanded, clear lungs. Assessment and Plan (1) Asthma with exacerbation: Qualifiers: Asthma persistence: unspecified Asthma severity: unspecified severity Qualified Code(s): J45.901 - Unspecified asthma with (acute) exacerbation Status: Acute Patient to remain in emergency department but under the care of the ICU as nursing staff is limited. Plan is to transition patient from CPAP to high-flow once she finishes the her current nebulizer treatment as during my exam she was satting at 100%. There is definitely a component of anxiety and patient was given some Ativan in the ED. ultrasound of B/L lower extremities to rule out DVT ordered for the morning. Steroids and nebulizer treatments.
[2020-05-26] MEDS: 0.9 % Sodium Chloride 1,000 ML 100 ML IVCONT (05:21)
[2020-05-26] MEDS: Enoxaparin Sodium 40 MG/0.4 ML SYRINGE SUBCUT (05:21)
--- NOTE | 2020-05-26 05:30 | PC.NURSE ---
patient tolerating 3l via nc well. patient being monitored at this time.
--- NOTE | 2020-05-26 05:35 | PC.NURSE ---
per automobile appraiser midlevel- continue to monitor patient until md arrives for 2nd eval to consider transfer to the floor at the time.
[2020-05-26 05:52] LABS: Reflex Lactate? 2 Y
[2020-05-26 06:00] LABS: Basophils Percent Auto 0.1 % (0-2); Eosinophils Percent Auto 0.2 % (0-4); Hematocrit 41.8 % (37-47); Hemoglobin 13.8 g/dl (12.0-16.0); Imm Gran Abs Auto 0.04 X10*3/uL (0.00-0.03); Imm Gran Pct Auto 0.3 % (0.0-0.4); Lymphocytes Absolute Auto 0.5 X10*3/uL (1.2-4.9); Lymphocytes Percent Auto 3.7 % (20-40); MANUAL DIFF FLAG SCAN; Mean Corpuscular Hemoglobin 31.1 pg (27.0-33.0); Mean Corpuscular Volume 94.1 fL (80-98); Mean Platelet Volume 9.1 fL (9.4-12.3); Monocytes Absolute Auto 0.1 X10*3/uL (0.1-1.2); Monocytes Percent Auto 0.7 % (2-11); Neutrophils Absolute Auto 11.9 X10*3/uL (2.0-8.3); Platelet Count 324 X10*3/uL (160-400); Red Blood Count 4.44 X10*6/uL (4.20-5.50); Red Cell Distribution Width 12.9 % (11.0-16.0); SCAN SMEAR FLAG 1; White Blood Count 12.6 X10*3/uL (4.8-10.8)
[2020-05-26 06:15] LABS: ~Lactic Acid-LAB USE ONLY 7.9 mmol/L (0.5-2.0)
[2020-05-26 06:21] LABS: SLIDE REVIEW VERIFIED
[2020-05-26 06:27] LABS: Anion Gap 19 (12-20); Blood Urea Nitrogen 10 mg/dL (9-16); Calcium 7.9 mg/dL (8.4-10.2); Carbon Dioxide 20 mmol/L (22-29); Chloride 106 mmol/L (96-108); Creatinine Clr Calc Pharmacy 75.5; Estimated Glomerular Filt Rate > 60; Glucose Random 239 mg/dL (60-115); Potassium 2.8 mmol/l (3.3-5.1); Sodium 142 mmol/L (135-145)
--- NOTE | 2020-05-26 06:40 | PC.NURSE ---
hospitalist notified of critical lactic. hung 500ml bolus per order. pt tolerating po apple juice.
[2020-05-26] MEDS: Albuterol/Iprat 2.5/0.5MG 3 ML AMPUL.NEB INHALE (06:51)
--- NOTE | 2020-05-26 06:55 | PC.NURSE ---
pt began to have increasing work of breathing. increased audible wheezing heard. Sats dropped 81% on 3L. Prn Duo neb given. Hospitalist aware. Plan at this time is that patient is to be reevaluated by history faculty member.
[2020-05-26 07:03] LABS: INTERNATIONAL NORM RATIO 1.1 (0.9-1.1); Prothrombin Time 12.9 SEC (10.8-13.0)
[2020-05-26 07:06] LABS: Alanine Aminotransferase 24 U/L (0-31); Alkaline Phosphatase 99 U/L (39-117); Aspartate Amino Transferase 25 U/L (5-31); Bilirubin Direct 0.2 mg/dL (0.0-0.5); Bilirubin Total 0.5 mg/dL (0.0-1.0); Total Protein 6.5 g/dL (6.5-8.0)
[2020-05-26 07:26] LABS: Amphetamine Screen Urine Not Detected (Not Detect); Barbiturates, Urine Not Detected (Not Detect); Benzodiazepines Screen Urine Not Detected (Not Detect); Cannabinoid Screen Urine Not Detected (Not Detect); Cocaine Screen Urine Not Detected (Not Detect); Opiate Screen Urine POSITIVE (Not Detect); Phencyclidine Screen Urine Not Detected (Not Detect)
[2020-05-26] MEDS: KCl 40 mEq in 0.9 % Sodium Chl 40 MEQ/1,000 ML IV.SOLN 100 MEQ IVCONT ×2 (08:57→20:47)
[2020-05-26] MEDS: Potassium Chloride Packet 20 MEQ PACKET 40 MEQ PO (09:05)
[2020-05-26] MEDS: 0.9 % Sodium Chloride Flush 3 ML SYRINGE IVFLUSH ×2 (09:06→16:37)
[2020-05-26] MEDS: Piperacillin Sodium/Tazobactam 4.5 GM in 0.9 % Sodium Chloride 100 ML IV ×3 (09:21→20:55)
--- NOTE | 2020-05-26 10:22 | PC.NURSE ---
Pt brought to ICU from ED. 100% on 4liters NC with sats in high 90s. Pt does have audible wheezing worse with exertion and COUCH. HR 150s at times of exertion as well but in 120s while at rest. When turning and assessing pt, a bundle of heroine was found under pt as well as a rolled-up 5-dollar bill. Security called and belongings and bed were searched. Pt denied having any other drugs on her. No further drugs or paraphernalia were found by security and this RN. Pt was cooperative with search. Pt admits to snorting heroine and MD made aware of heroine use.
[2020-05-26] MEDS: levoFLOXacin/D5W 750 MG/150 ML PIGGYBACK 100 MG IV (10:39)
--- NOTE | 2020-05-26 10:58 | W.PM.CCCN ---
History of Present Illness Data of Consult Service Date: 05/26/20 Requesting physician: Chantel Holguin Primary Care Provider: Unknown Physician HPI Reason for consult: Status asthmaticus 24-year-old female with urine toxicology positive for opiates not on any prescriptive is background hypertension and at least 1 year of progressive worsening of asthma symptoms and presents apparently without fever is lethargic and not of any help historically and we happened to find some illicit drugs wrapped and on her person and I would assume heroin and we did note on CT scan that there was evidence of a ground-glass infiltrate right perihilar region evidence of some tree in bud configuration as well as peribronchial distortion and thickening consistent with the a chronic bronchiectatic picture and currently wheezing with considerable prolongation of expiratory time and desaturates very easily when and any movement is made No history of medical hypercoagulability Review of Systems Review of Systems: Yes Unobtainable due to mental status [facility] Past Medical History Medical History Asthma Social History Social History Household Members: Family Housing: House Alcohol intake: current Alcohol intake frequency: holidays/special occasions only Smoking Status: Current every day smoker Tobacco Type: Cigarette Packs Per Day: 0.5 Cigarettes Per Day: 10.0 Years Smoked: 4 Smoked in Last 30 Days: Yes Use of substances other than those prescribed or required for medical reasons: Yes Substance Use Type: Heroin Substance Use Frequency: Daily Last Used Substance Other:: 3 days ago Currently Displaying Signs/Symptoms of Drug Intoxication Withdrawal: No Any prior treatment program specific to substance use: Yes (Methadone) Have you been hit, kicked, punched, or otherwise hurt by someone within the past year? If so, by whom?: No Do you feel safe in your current relationship?: Yes Is there a partner from a previous relationship who is making you feel unsafe now?: No Are you made to feel afraid or neglected: No Advance Directives: No Advance Directives Information Provided: No Do you have thoughts of harming others: None Do you have a plan to hurt others: No Plan Recently lost weight without trying: No Meds Allergies Allergy/AdvReac Type Severity Reaction Status Date / Time No Known Allergies Allergy Unverified 02/13/20 18:32 [No Known Allergies*] Physical Exam Vital Signs: Vital Signs: Last Vital Signs Temp 99.3 F 05/26/20 08:19 Pulse 121 H 05/26/20 10:00 Resp 17 05/26/20 10:00 BP 112/52 L 05/26/20 09:22 Pulse Ox 100 05/26/20 10:00 Body Mass Index 26.2 Nonfocal neurologically and easily arousable despite lethargy and she is oriented Skin is intact no wounds no acrocyanosis no livedo Cardiac exam with bedside echo showing at least moderate levels of pulmonary hypertension PA systolics of between 45 and 50 with possibly mild dilatation of right ventricle but otherwise normal LV function and no primary valve or pericardial disease Lungs with bilateral wheeze Abdomen benign with no organomegaly and good bowel sounds and nontender Results Labs CBC & Chem 7: 05/26/20 05:50 05/26/20 05:50 Labs: Short CBC 05/26/20 05/26/20 Range/Units 01:31 05:50 WBC 11.7 H 12.6 H (4.8-10.8) X10*3/uL Hgb 14.4 13.8 (12.0-16.0) g/dl Hct 43.9 41.8 (37-47) % Plt Count 317 324 (160-400) X10*3/uL BMP 05/26/20 05/26/20 01:31 05:50 Sodium 140 142 Potassium 3.8 2.8 L D Chloride 105 106 Carbon Dioxide 23 20 L BUN 13 D 10 Creatinine 0.79 0.89 Calcium 8.6 7.9 L D Liver Function 05/26/20 Range/Units 01:31 Total Bilirubin 0.5 (0.0-1.0) mg/dL Direct Bilirubin 0.2 (0.0-0.5) mg/dL AST 25 D (5-31) U/L ALT 24 (0-31) U/L Alkaline Phosphatase 99 (39-117) U/L Albumin 4.0 (3.5-5.0) g/dL Urine 05/26/20 Range/Units 03:05 Urine Color STRAW Urine Appearance HAZY Urine pH 6.0 (5.0-8.0) Ur Specific [place] >= 1.030 H (1.005-1.025) Urine Protein 1+ H (NEG-TRACE) MG/DL Urine Glucose (UA) NEG (NEG) MG/DL Assessment and Plan (1) Asthma with exacerbation: Qualifiers: Asthma persistence: unspecified Asthma severity: unspecified severity Qualified Code(s): J45.901 - Unspecified asthma with (acute) exacerbation Status: Acute (2) Status asthmaticus with COPD (chronic obstructive pulmonary disease): Status: Acute (3) Asthmatic bronchitis with status asthmaticus: Status: Acute (4) Opioid abuse: Status: Acute (5) Pulmonary edema: Status: Acute Pulmonary edema quite possibly noncardiogenic based on snorting heroin in addition to which is evidence of chronic asthmatic bronchitis and given the her young age we need to consider possibility of alpha-1 antitrypsin deficiency and will check that level but in the interim we will treat with IV steroids and cover as a community acquired infection with antibiotics and we will of course have to maintain BiPAP until she is no longer in status
[2020-05-26 12:58] LABS: UPreg QC Valid YES; Urine Pregnancy NEGATIVE (NEGATIVE)
--- NOTE | 2020-05-26 13:17 | PC.NURSE ---
Message left at patient's methadone clinic ([facility]). The message was left with a clinic sanding machine operator or tender named jason who will be sending a message to the clinic stating that the staff at [facility] ICU needs to speak with a clinic nurse for Methadone dose verification as well as to discuss that the patient is actively using heroine at this time. Awaiting call back at this time.
[2020-05-26 13:32] LABS: Hematocrit 36.7 % (37-47); Hemoglobin 12.2 g/dl (12.0-16.0); Mean Corpuscular HGB Conc 33.2 g/dl (31.0-35.0); Mean Corpuscular Hemoglobin 30.7 pg (27.0-33.0); Mean Corpuscular Volume 92.4 fL (80-98); Mean Platelet Volume 9.1 fL (9.4-12.3); Platelet Count 295 X10*3/uL (160-400); Red Blood Count 3.97 X10*6/uL (4.20-5.50); White Blood Count 8.3 X10*3/uL (4.8-10.8)
[2020-05-26 14:12] LABS: Anion Gap 10 (12-20); Blood Urea Nitrogen 7 mg/dL (9-16); Calcium 7.8 mg/dL (8.4-10.2); Carbon Dioxide 20 mmol/L (22-29); Chloride 112 mmol/L (96-108); Estimated Glomerular Filt Rate > 60; Glucose Random 167 mg/dL (60-115); Potassium 3.4 mmol/l (3.3-5.1); Sodium 139 mmol/L (135-145)
[2020-05-26 14:16] LABS: B Type Natriuretic Peptide 94 pg/mL (<100)
[2020-05-26] MEDS: levalbuterol HCL 1.25 MG/3 ML VIAL.NEB INHALE ×2 (15:15→20:13)
[2020-05-26 19:25] LABS: Blood Gas Serial # 5396; HCO3 VBG 19 mmol/L; Oxygen Saturation VBG 82.3 %; PCO2 VBG 34 mmhg; PO2 VBG 43 mmhg; pH VBG 7.37 (7.32-7.43)
[2020-05-26 19:41] LABS: Lactic Acid 0.8 mmol/L (0.5-2.0)
[2020-05-27] VITALS (10 sets, daily range): BP systolic 107–140; BP diastolic 59–80; PULSE 81–115; RESP 16–20; TEMP 36.4–36.8; O2SAT 95–97
[2020-05-27] MEDS: Enoxaparin Sodium 40 MG/0.4 ML SYRINGE SUBCUT (04:16)
[2020-05-27] MEDS: Piperacillin Sodium/Tazobactam 4.5 GM in 0.9 % Sodium Chloride 100 ML IV (04:16)
[2020-05-27] MEDS: KCl 40 mEq in 0.9 % Sodium Chl 40 MEQ/1,000 ML IV.SOLN 100 MEQ IVCONT (04:19)
[2020-05-27 07:18] LABS: Anion Gap 12 (12-20); Blood Urea Nitrogen 7 mg/dL (9-16); Calcium 8.6 mg/dL (8.4-10.2); Carbon Dioxide 20 mmol/L (22-29); Chloride 110 mmol/L (96-108); Creatinine Clr Calc Pharmacy 93.5; Estimated Glomerular Filt Rate > 60; Glucose Random 109 mg/dL (60-115); Potassium 4.4 mmol/l (3.3-5.1); Sodium 138 mmol/L (135-145)
[2020-05-27] MEDS: levalbuterol HCL 1.25 MG/3 ML VIAL.NEB INHALE ×4 (07:26→19:34)
[2020-05-27] MEDS: levoFLOXacin/D5W 750 MG/150 ML PIGGYBACK 150 MG IV (10:11)
[2020-05-27] MEDS: lisinopriL 20 MG TABLET PO (10:11)
[2020-05-27] MEDS: 0.9 % Sodium Chloride Flush 3 ML SYRINGE IVFLUSH ×3 (10:11→20:00)
--- NOTE | 2020-05-27 10:57 | MHC.CM.PN ---
NURSE TYPESETTING MACHINE OPERATOR/TENDER NOTE ELECTRONIC MEDICAL RECORD REVIEWED ALONG WITH CASE DISCUSSED ON MULTIPLE DISCIPLINARY ROUNDS MET WITH PATIENT AND EXPLAINED THE ROLE OF THE NURSE TYPESETTING MACHINE OPERATOR/TENDER IN THE TRANSITION FROM THE HOSPITAL TO HOME . EDUCATED ABOUT THE IMPORTANCE OF HAVING A HEALTH CARE PROXY BUT DECLINED TO COMPLETE ONE AT THIS TIME. 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 [phone], SHE HAS ASTHMA AND COPD AND IS FOLLOWED BY HER PCP SHE HAS NO DURABLE MEDICAL EQUIPMENT AT HOME URINE DRUG SCREEN POSITIVE FOR OPIATES AND ADMITS TO TAKING HEROIN DISCHARGE PLAN HOME WITH 1. CARES TEAM RECOMMENDATIONS [facility] SELF RESUMPTION OF HER [facility] PCP PATIENT TO CALL FOR POST HOSPITAL DISCHARGE FOLLOW UP]\ TRANSPORTATION FAMILY OR FRIENDS
--- NOTE | 2020-05-27 11:40 | MHC.RECOVSUP ---
Recovery Support note: Patient is a 24 year old [place]isian speaking female who presented to [facility] ED due to shortness of breath and was medically admitted. This telegraphic typewriter installer met with patient in to discuss her substance use and recovery treatment options. Patient reports that she is currently on Methadone and that she finds it helpful, however she feels that she would benefit from an increase in dosage however the clinic has not been willing to do that. Patient reports she started Methadone early on during the pandemic and was able to maintain recovery until several weeks ago when she started using again. Patient acknowledges that continuing to use heroin nasally will be detrimental to her health and she has a desire to stop using. Patient reports confidence that she will be able to stop using. Discussed harm reduction and alternatives to snorting with patient. Patient reports she has her own therapist and that she also has a therapist through the Methadone clinic. Patient reports that therapy has been helpful. Discussed support groups and IOP. Patient was willing to accept information on both of these resources. Discussed [facility] and recovery coaching with patient. Patient was willing to accept information however declined meeting with a Industrial Hygiene Technician today due to nausea. Provided patient with a business card in the event that she has any additional questions she can get in touch with this telegraphic typewriter installer. Discussed case with patient's RN, Sofía.
--- NOTE | 2020-05-27 12:35 | HO.PM.IMPN ---
Subjective Subjective Date of Service: 05/27/20 Interval History: the patient was seen and evaluated this morning Laying in bed, feels comfortable, reporting nausea and vomiting since the morning Denies any fever, chills Complaining of dyspnea on exertion and wheezing No reported other overnight events. Systemic review: No fever, chills or weakness No chest pain, palpitation Reporting shortness of breath and dyspnea on exertion No abdominal pain, nausea or vomiting No urinary symptoms No any rash or wounds Physical Exam Vital Signs: Vital Signs: Last Vital Signs Temp 97.6 F 05/27/20 11:39 Pulse 115 H 05/27/20 11:39 Resp 19 05/27/20 11:39 BP 135/71 05/27/20 11:39 Pulse Ox 97 05/27/20 11:39 Body Mass Index 25.6 Constitutional : Alert, oriented, not in distress Neck : Normal inspection, Supple Cardiovascular : RRR, S1 S2, no lower extremity edema Respiratory : Decrease bilateral air entry, no crackles, scattered fine wheezes , no rhonchi Gastrointestinal: soft, lax, Normal bowel sounds, Non tender Skin : Warm/Dry, No rash Neurological : Alert & oriented x3, No focal deficit Objective Data Current Medications Generic Name Dose Route Start Last Admin Trade Name Freq PRN Reason Stop Dose Admin Acetaminophen 650 mg 05/26/20 02:54 Acetaminophen 325 Mg Tablet PO Q6H PRN Pain, Mild (Pain Scale 1-3) Albuterol/Ipratropium 3 ml 05/26/20 06:29 05/26/20 06:51 Albuterol/Iprat 2.5/0.5mg 3 Ml Ampul.Neb INHALE 3 ml Q2H PRN Administration short of breath Enoxaparin Sodium 40 mg 05/26/20 04:00 05/27/20 04:16 Enoxaparin Sodium 40 Mg/0.4 Ml Syringe SUBCUT 40 mg Q24H VIN Administration Levofloxacin 750 mg in 150 mls @ 100 mls/hr 05/26/20 09:00 05/27/20 11:16 Levaquin IV Infused Q24H VIN Infusion Levalbuterol HCl 1.25 mg 05/26/20 12:00 05/27/20 11:23 Levalbuterol Hcl 1.25 Mg/3 Ml Vial.Neb INHALE 1.25 mg RQ4H WHILE AWAKE VIN Administration Lisinopril 20 mg 05/27/20 09:35 05/27/20 10:11 Lisinopril 20 Mg Tablet PO 20 mg DAILY VIN Administration Protocol Methadone HCl 25 mg 05/27/20 12:10 Methadone Hcl 1 Mg/0.1 Ml Oral.Conc PO DAILY VIN Methylprednisolone Sodium Succinate 40 mg 05/27/20 09:00 05/27/20 10:11 Methylprednisolone Sod Succ/Pf 40 Mg/Ml Vial IVPUSH 40 mg DAILY VIN Administration Ondansetron HCl 4 mg 05/27/20 09:32 Ondansetron Hcl 4 Mg/2 Ml Vial IVPUSH Q8H PRN Nausea and Vomiting Sodium Chloride 3 ml 05/26/20 08:00 05/27/20 10:11 0.9 % Sodium Chloride Flush 3 Ml Syringe IVFLUSH 3 ml QSHIFT VIN Administration Labs CBC & Chem 7: 05/26/20 13:08 05/27/20 06:20 Microbiology Microbiology Results: Microbiology 05/26/20 03:05 Urine clean catch - Clean Catch Midstream Urine Culture - Final 05/26/20 01:55 Blood - Venous Blood Culture - Preliminary No growth after 24 hours. 05/26/20 01:55 Blood - Venous Blood Culture - Preliminary No growth after 24 hours. Assessment and Plan (1) Asthmatic bronchitis with status asthmaticus: Status: Acute (2) Asthma with exacerbation: Status: Acute (3) Opioid abuse: Status: Acute (4) Lactic acidosis: Status: Acute Assessment and Plan: A 24 years old lady with PMH of asthma, opioid abuse on methadone, HTN among others who presented to the hospital with severe dyspnea and hypoxia. Admitted to ICU then transferred to the medical floor. Status asthmaticus Asthma with exacerbation Required CPAP and high-flow in the emergency, admitted to ICU Continue IV steroids today continue ATC nebulizers Wean off oxygen Chemical pneumonitis Likely secondary to sniffing heroin Discontinue Zosyn, continue Levaquin Continue steroids for now Opiate abuse Positive urine tox screen continue methadone Advised complete abstinence from drugs HTN continue lisinopril DVT PPX Lovenox
[2020-05-27 17:23] LABS: Alpha 1 Anti-trypsin 146 mg/dL (83-199)
[2020-05-28 03:24] VITALS: BP 132/96; PULSE 95; RESP 18; TEMP 36.6; O2SAT 96
[2020-05-28] MEDS: Enoxaparin Sodium 40 MG/0.4 ML SYRINGE SUBCUT (04:02)
[2020-05-28 07:08] LABS: Anion Gap 11 (12-20); Blood Urea Nitrogen 11 mg/dL (9-16); Calcium 8.4 mg/dL (8.4-10.2); Carbon Dioxide 23 mmol/L (22-29); Chloride 107 mmol/L (96-108); Creatinine Clr Calc Pharmacy 89.7; Estimated Glomerular Filt Rate > 60; Glucose Random 92 mg/dL (60-115); Potassium 3.8 mmol/l (3.3-5.1); Sodium 137 mmol/L (135-145)
[2020-05-28] MEDS: levalbuterol HCL 1.25 MG/3 ML VIAL.NEB INHALE ×2 (07:24→11:04)
[2020-05-28 07:26] VITALS: PULSE 99; O2SAT 97
[2020-05-28 07:39] VITALS: BP 136/85; PULSE 74; RESP 18; TEMP 36.4; O2SAT 97
[2020-05-28 08:00] VITALS: BMI 25.5
--- NOTE | 2020-05-28 08:54 | PM.DS ---
DS: Providers Provider Date of admission: 05/26/20 08:41 Primary care physician: Unknown Physician Consults: 05/27/20 09:01 Consult to Care Team Routine Comment: Reason for consultation: positive opiates qd heroin and also attensds methadone clinic DS: Diagnosis Discharge Diagnosis (1) Asthmatic bronchitis with status asthmaticus: Status: Acute (2) Opioid abuse: Status: Acute (3) Lactic acidosis: Status: Acute (4) Acute respiratory failure with hypoxia: Status: Acute (5) Chemical pneumonia: Status: Acute DS: Medications Discharge Medications Home Medications: Home Medications Medication Instructions Recorded Confirmed methadone [Methadone Intensol] 25 mg PO DAILY 05/27/20 05/27/20 Previous Rx's Medication Instructions Recorded lisinopril-hydrochlorothiazide 1 tab PO DAILY #30 tab 05/07/20 albuterol sulfate 2 puff INHALATION Q6H PRN #1 units 05/28/20 levofloxacin 750 mg PO DAILY #3 tab 05/28/20 prednisone 40 mg PO DAILY #10 tab 05/28/20 DS: Summary Hospital Course Hospital Course: HPI from admission H&P: Patient is a 24-year-old female with within on clear past medical history who was BIBA complaining of shortness of breath. According to ED records, the patient woke up a few hours ago coughing and short of breath, she called 911. Upon arrival at the patient's home, EMS states she was satting at 80% on room air, EMS gave her a nebulizer treatment and Solu-Medrol 125 mg, 6L oxygen and patient's oxygen saturation increased to 95%. Patient has no documented history of asthma but for the last year she has been having episodes of bronchitis and pneumonia and feels she never fully recovered. Patient was hospitalized in August 2019 with presumptive COVID-19 infection and respiratory failure. Today, patient denies fever or sick contacts. Patient had a 2nd episode of hypoxia as she was getting on the bedpan in the ED which prompted the use of CPAP. However, during my exam, she was more comfortable, breathing easier and setting at 100% on Bipap 10/5 FiO2 50% and had no other complaints. Labs in the ED were remarkable for white blood cell count 11.7, D-dimer negative, lactic acid 2.1 although sepsis is not suspected as elevation is likely 2/2 hypoxia, troponin 21.9, the 2nd troponin was 54.3, likely due to demand ischemia. Chest x-ray showed hyperexpanded lungs. EKG was sinus tach with a heart rate of 106, patient was given 1 hour long nebulizer treatment in the emergency department. Dry CT chest pending. Of note, patient is also taking lisinopril/HCTZ but claims she has no primary care doctor. Hospital Course: Patient was admitted to the ICU and was weaned from CPAP to high flow. SHe was treated with high dose steriods and empiric antibiotics. She was quick to improve and was able to wean to RA withint 24 hours of admission. SHe was transitioned to the floor where she was treated for an additional 24 hours with tapering does of IV steroids. She will be d/c home with 5 days of prednisone, levaquin to complete a course of antibitoics and bronchodialtors. She has been referred to pulmonary for a formal diagnosis of asthma (she reported no previous PFTs). Likely cause of her presentation was 2/2 to snorting opiates. SHe has been strongly discouraged from further use. CARE team + resources were provided to the patient. Time Spent with Patient Time attestation: Total time spent providing and/or coordinating discharge services: Physical Exam Vital Signs: Vital Signs: Last Vital Signs Temp 97.6 F 05/28/20 07:39 Pulse 74 05/28/20 07:39 Resp 18 05/28/20 07:39 BP 136/85 05/28/20 07:39 Pulse Ox 97 05/28/20 07:39 Body Mass Index 25.5 Const: Other: General - no acute distress, appears comfortable Cardiovascular - regular rate and rhythm, S1-S2 Lungs - normal respiratory effort, clear to auscultation bilaterally, no wheezing Abdomen - soft, nontender, no rebound or guarding Extremities - no edema bilaterally Neuro - awake and alert, no focal deficits DS: Data Data Completed and Pending Labs on day of discharge: Laboratory Last Values WBC 8.3 X10*3/uL (4.8-10.8) 05/26/20 13:08 RBC 3.97 X10*6/uL (4.20-5.50) L 05/26/20 13:08 Hgb 12.2 g/dl (12.0-16.0) 05/26/20 13:08 Hct 36.7 % (37-47) L 05/26/20 13:08 MCV 92.4 fL (80-98) 05/26/20 13:08 MCH 30.7 pg (27.0-33.0) 05/26/20 13:08 MCHC 33.2 g/dl (31.0-35.0) 05/26/20 13:08 RDW 13.0 % (11.0-16.0) 05/26/20 13:08 Plt Count 295 X10*3/uL (160-400) 05/26/20 13:08 MPV 9.1 fL (9.4-12.3) L 05/26/20 13:08 Immature Gran % (Auto) 0.3 % (0.0-0.4) 05/26/20 05:50 Neut % (Auto) 95.0 % (45-73) H 05/26/20 05:50 Lymph % (Auto) 3.7 % (20-40) L 05/26/20 05:50 [place] % (Auto) 0.7 % (2-11) L 05/26/20 05:50 Eos % (Auto) 0.2 % (0-4) 05/26/20 05:50 Baso % (Auto) 0.1 % (0-2) 05/26/20 05:50 Lymph # (Auto) 0.5 X10*3/uL (1.2-4.9) L 05/26/20 05:50 [place] # (Auto) 0.1 X10*3/uL (0.1-1.2) 05/26/20 05:50 Eos # (Auto) 0.0 X10*3/uL (0.0-0.4) 05/26/20 05:50 Baso # (Auto) 0.0 X10*3/uL (0.0-0.2) 05/26/20 05:50 Abs Immat Gran (auto) 0.04 X10*3/uL (0.00-0.03) H 05/26/20 05:50 Absolute Neuts (auto) 11.9 X10*3/uL (2.0-8.3) H 05/26/20 05:50 Absolute Nucleated RBC 0.000 X10*3/uL (0.0-0.012) 05/26/20 13:08 Nucleated RBC % (auto) 0.0 /100WBC (0.0-0.2) 05/26/20 13:08 Smear Tech's Comments VERIFIED 05/26/20 05:50 PT 12.9 SEC (10.8-13.0) 05/26/20 01:31 INR 1.1 (0.9-1.1) 05/26/20 01:31 APTT 29.0 SEC (24.1-38.0) 05/26/20 01:31 D-Dimer < 200 NG/ML 05/26/20 01:31 VBG pH 7.37 (7.32-7.43) 05/26/20 19:13 VBG pCO2 34 mmhg 05/26/20 19:13 VBG pO2 43 mmhg 05/26/20 19:13 VBG HCO3 19 mmol/L 05/26/20 19:13 VBG O2 Saturation 82.3 % 05/26/20 19:13 VBG Base Excess -5.0 mmol/L 05/26/20 19:13 Sodium 137 mmol/L (135-145) 05/28/20 06:03 Potassium 3.8 mmol/l (3.3-5.1) 05/28/20 06:03 Chloride 107 mmol/L (96-108) 05/28/20 06:03 Carbon Dioxide 23 mmol/L (22-29) 05/28/20 06:03 Anion Gap 11 (12-20) L 05/28/20 06:03 BUN 11 mg/dL (9-16) D 05/28/20 06:03 Creatinine 0.74 mg/dL (0.5-1.4) 05/28/20 06:03 Estim Creat Clear Calc 89.7 05/28/20 06:03 Estimated GFR > 60 05/28/20 06:03 Random Glucose 92 mg/dL (60-115) 05/28/20 06:03 Lactic Acid 0.8 mmol/L (0.5-2.0) 05/26/20 19:13 Lactic Acid Fup @ 2Hr 4.0 mmol/L (0.5-2.0) H* 05/26/20 03:49 Lactic Acid Fup @ 4Hr 7.9 mmol/L (0.5-2.0) H* 05/26/20 05:50 Calcium 8.4 mg/dL (8.4-10.2) 05/28/20 06:03 Magnesium 2.0 mg/dL (1.6-2.6) 05/27/20 06:20 Total Bilirubin 0.5 mg/dL (0.0-1.0) 05/26/20 01:31 Direct Bilirubin 0.2 mg/dL (0.0-0.5) 05/26/20 01:31 AST 25 U/L (5-31) D 05/26/20 01:31 ALT 24 U/L (0-31) 05/26/20 01:31 Alkaline Phosphatase 99 U/L (39-117) 05/26/20 01:31 Troponin I High Sens 54.3 ng/L (<3.5-17.0) H D 05/26/20 03:05 B-Natriuretic Peptide 94 pg/mL (<100) 05/26/20 13:08 Total Protein 6.5 g/dL (6.5-8.0) 05/26/20 01:31 Albumin 4.0 g/dL (3.5-5.0) 05/26/20 01:31 Nwyto-4-[id number] 146 mg/dL (83-199) 05/26/20 13:08 Urine Color STRAW 05/26/20 03:05 Urine Appearance HAZY 05/26/20 03:05 Urine pH 6.0 (5.0-8.0) 05/26/20 03:05 Ur Specific [place] >= 1.030 (1.005-1.025) H 05/26/20 03:05 Urine Protein 1+ MG/DL (NEG-TRACE) H 05/26/20 03:05 Urine Glucose (UA) NEG MG/DL (NEG) 05/26/20 03:05 Urine Ketones 40 MG/DL (NEG) 05/26/20 03:05 Urine Blood 3+ (NEG) H 05/26/20 03:05 Urine Nitrite NEG (NEG) 05/26/20 03:05 Ur Leukocyte Esterase NEG (NEG) 05/26/20 03:05 Urine RBC 5-9 /HPF (0) H 05/26/20 03:05 Urine WBC 0 /HPF (0-4) 05/26/20 03:05 Ur Squamous Epith Cells TRACE /LPF 05/26/20 03:05 Urine Bacteria NONE /LPF 05/26/20 03:05 Urine Test NEGATIVE (NEGATIVE) 05/26/20 03:05 Urine Opiates Screen POSITIVE (Not Detect) H 05/26/20 03:05 Ur Barbiturates Screen Not Detected (Not Detect) 05/26/20 03:05 Ur Phencyclidine Scrn Not Detected (Not Detect) 05/26/20 03:05 Ur Amphetamines Screen Not Detected (Not Detect) 05/26/20 03:05 U Benzodiazepines Scrn Not Detected (Not Detect) 05/26/20 03:05 Urine Cocaine Screen Not Detected (Not Detect) 05/26/20 03:05 U Marijuana (THC) Screen Not Detected (Not Detect) 05/26/20 03:05 Coronavirus (PCR) NEGATIVE (Negative) 05/26/20 03:04 COVID-19 (ROSALIND) Negative (Negative) 05/26/20 01:31 COVID-19 Clin Com See Note 05/26/20 01:31 Influenza Type A (PCR) NEGATIVE (Negative) 05/26/20 03:04 Influenza Type B (PCR) NEGATIVE (Negative) 05/26/20 03:04 RSV RNA Qual (PCR) NEGATIVE (Negative) 05/26/20 03:04 Preliminary micro results at discharge 05/26/20 01:55 Blood Culture - Preliminary Blood - Venous No growth after 48 hours. 05/26/20 01:55 Blood Culture - Preliminary Blood - Venous No growth after 48 hours. Discharge Plan Discharge Patient Disposition: Home, Self-Care Referrals: Cuate Kelly MD [Physician] - (asthma, recurrent admissions, needs formal diagnosis) Physician,Unknown [Primary Care Provider] - Discharge Medications: New prednisone 20 mg tablet 40 mg PO DAILY Qty: 10 RF: 0 levofloxacin 750 mg tablet 750 mg PO DAILY Qty: 3 RF: 0 Continued lisinopril-hydrochlorothiazide 20-12.5 mg tablet 1 tab PO DAILY Qty: 30 RF: 0 methadone [Methadone Intensol] 10 mg/mL Concentrate 25 mg PO DAILY RF: 0 albuterol sulfate 90 mcg/actuation HFA aerosol inhaler 2 puff inhalation Q6H PRN (Reason: bronchitis) Qty: 1 RF: 0 Discharge Orders: Discharge Order (Routine); Ordered 05/28/20 Ordered By: Emerson Sharma Diet: advance to usual diet Activity on Discharge: As tolerated Visit Report Forms: Patient Portal Discharge page Care Plan Goals: To stay healthy and out of the hospital. Health Concerns: Asthma Plan of Treatment: Take prednisone for 5 days, levaquin for 3 days, albulterol inhaler 4 times a day. Follow up with pulmonary clinic for formal diagnosis of asthma
--- NOTE | 2020-05-28 08:56 | MHC.CM.PN ---
Pt will DC home today with self-resumption of methadone maintenance program. Pt will self arrange transportation
[2020-05-28] MEDS: 0.9 % Sodium Chloride Flush 3 ML SYRINGE IVFLUSH (09:22)
[2020-05-28] MEDS: levoFLOXacin/D5W 750 MG/150 ML PIGGYBACK 100 MG IV (09:22)
[2020-05-28 09:23] VITALS: BP 140/86; PULSE 75
[2020-05-28] MEDS: lisinopriL 20 MG TABLET PO (09:23)
[2020-05-28 11:05] VITALS: PULSE 84; O2SAT 97
== END 2020-05-28 12:00 | disposition home or self-care (01) | DRG 917 ==
LOC: HO.ED 07:13 → HO.ICU 09:30 → HO.S3 15:36
PROVIDERS: Hospitalist; Student in an Organized Health Care Education/Training Program; Admitting Provider Internal Medicine Cardiovascular Disease; Emergency Provider Emergency Medicine; Visit Provider Family Medicine
DX: T40.1X1A Poisoning by heroin, accidental (unintentional), initial encounter (principal); J96.01 Acute respiratory failure with hypoxia; J45.902 Unspecified asthma with status asthmaticus; F11.20 Opioid dependence, uncomplicated; E87.2 Acidosis; J70.4 Drug-induced interstitial lung disorders, unspecified; Z20.828 Contact with and (suspected) exposure to other viral communicable diseases; F17.210 Nicotine dependence, cigarettes, uncomplicated; Z71.6 Tobacco abuse counseling; Z79.899 Other long term (current) drug therapy
CPT/HCPCS: 0241U; 36415; 71045; 71250; 80048; 80076; 80307; 81001; 81025; 82103; 82803; 83605; 83735; 83880; 84484; 85025; 85027; 85379; 85610; 85730; 87040; 87086; 87635; 93005; 93970; 94640; 94644; 94645; 94660; 96361; 96365; 96375; 99284; 99285; J1650; J1956; J2060; J2405; J2543; J2920; J3475

== ENCOUNTER 2020-07-25 01:29 | Inpatient (IN) | payer MEDICAID, SELFPAY ==
[2020-07-25] VITALS (14 sets, daily range): BP systolic 118–130; BP diastolic 62–86; PULSE 93–123; RESP 15–20; TEMP 36–36.9; O2SAT 18–98; BMI 23.2
--- NOTE | 2020-07-25 | ECG_ITS ---
Test Reason : SOB Blood Pressure : / mmHG Vent. Rate : 088 BPM Atrial Rate : 088 BPM P-R Int : 122 ms QRS Dur : 078 ms QT Int : 382 ms P-R-T Axes : 071 022 043 degrees QTc Int : 462 ms Normal sinus rhythm with sinus arrhythmia Normal ECG No previous ECGs available Referred By: Sara Dillon Electronically Signed By:BEBO MILLIGAN
--- NOTE | ~2020-07-25 | XR_ITS ---
EXAMINATION: XR CHEST CLINICAL INFORMATION: Shortness of breath COMPARISON: 05/26/2020 TECHNIQUE: Frontal view of the chest was obtained. FINDINGS: The lungs are hyperexpanded. Bronchial wall thickening noted. There is no focal consolidation, edema, or effusion. No pneumothorax. The cardiomediastinal silhouette is within normal limits. No acute osseous abnormality. XR/XR chest 1V IMPRESSION: Hyperexpanded lungs. Bronchial wall thickening can be seen with a small airways process such as asthma or atypical/viral infection.
--- NOTE | ~2020-07-25 | CT_ITS ---
EXAMINATION: CT ANGIOGRAM CHEST WITHOUT AND WITH CONTRAST (CT PULMONARY ANGIOGRAM FOR PE) CLINICAL INFORMATION: Shortness of breath, hypoxia. COMPARISON: X-ray of the chest earlier same day at 1:[address] 05/26/2020. TECHNIQUE: Prior to contrast administration, noncontrast localization images were obtained. Subsequently, multidetector volumetric imaging was performed from the thoracic inlet to below the diaphragms following the administration of 65 mL Omnipaque 350 intravenous contrast. No contrast reaction reported Sagittal, coronal, and MIP oblique sagittal reformatted images were obtained on the CT workstation, uploaded to PACS, and reviewed. This CT examination was performed using dose optimization techniques as appropriate, variously including the following: *Automated exposure control *Adjustment of mA and/or kV according to patient size (this includes techniques or standardized protocols for targeted exams where dose is matched to indication/reason for exam; i.e. extremities or head) *Use of iterative reconstruction technique Total exam dose-length product 214 mGy-cm FINDINGS: QUALITY OF STUDY/CONTRAST BOLUS: Satisfactory. PULMONARY ARTERIES: No central or segmental pulmonary emboli. THORACIC AORTA: No aneurysm or dissection. LUNG: There is new patchy ground-glass opacity in the posterior medial aspect of the right lower lobe not seen on the prior examination. However, the more anteriorly located previous ground-glass opacity has cleared. There is scattered bronchial wall thickening and bronchial filling defects throughout the right and left lungs as before. PLEURA: No pleural effusion or pneumothorax. MEDIASTINUM: Normal heart size. No pericardial effusion. No hilar or mediastinal lymphadenopathy. No evidence of septal bowing or right heart strain. CHEST WALL/AXILLA: No axillary or internal mammary lymphadenopathy. OSSEOUS STRUCTURES: No acute or suspicious osseous abnormality. UPPER ABDOMEN: Unremarkable. No reflux of contrast into the hepatic veins to suggest elevated right heart pressures. CT/CT angio chest PE protocol IMPRESSION: No evidence for pulmonary embolism. As seen on prior CT April 2020, there are scattered areas of bronchial wall thickening and bronchial filling defects as well as new ground-glass opacity in the right lower lobe suggestive of a small airways process such as asthma or infection. The previously noted ground-glass opacity more anteriorly in the right lower lobe has cleared in the interim. VTE: Negative
--- NOTE | 2020-07-25 01:51 | ED_ITS ---
HPI - SOB/Dyspnea General Chief Complaint: Dyspnea Stated Complaint: SOB Time Seen by Provider: 07/25/20 01:48 Source: patient Mode of arrival: ambulatory History of Present Illness HPI Narrative: This is a 24-year-old female, current everyday smoker, known to have asthma who presents with increasing shortness of breath over the past week without associated fevers, GI symptoms, symptoms, recent travel but does endorse that she has had chills as well as the sore throat. However, she attributes this to her increased coughing. She states she does not see a primary care provider for her condition and does not have medications. Related Data Home Medications Medication Instructions Recorded Confirmed methadone [Methadone Intensol] 25 mg PO DAILY 05/27/20 05/27/20 Previous Rx's Medication Instructions Recorded lisinopril-hydrochlorothiazide 1 tab PO DAILY #30 tab 05/07/20 albuterol sulfate 2 puff INHALATION Q6H PRN #1 units 05/28/20 levofloxacin 750 mg PO DAILY #3 tab 05/28/20 prednisone 40 mg PO DAILY #10 tab 05/28/20 Allergies Allergy/AdvReac Type Severity Reaction Status Date / Time No Known Allergies Allergy Unverified 02/13/20 18:32 [No Known Allergies*] Review of Systems Review of Systems: Pertinent positives and negatives as stated in HPI 10 point review of systems is otherwise negative. [facility] Past Medical History Source: nursing notes reviewed Medical History Asthma Opioid abuse Status asthmaticus with COPD (chronic obstructive pulmonary disease) Social History Social History Household Members: Family Housing: House Alcohol intake: current Alcohol intake frequency: holidays/special occasions only Smoking Status: Current every day smoker Tobacco Type: Cigarette Packs Per Day: 0.5 Cigarettes Per Day: 10.0 Years Smoked: 4 Smoked in Last 30 Days: Yes Substance Use Type: Heroin Advance Directives: No service: No Current occupational status: employed Physical Exam Vital Signs: Vital Signs: Last Vital Signs Temp 98.2 F 07/25/20 03:53 Pulse 113 H 07/25/20 07:20 Resp 20 07/25/20 07:20 BP 122/78 07/25/20 07:20 Pulse Ox 94 07/25/20 07:20 Body Mass Index 23.2 VITAL SIGNS: Reviewed. GENERAL: Well developed, well nourished, in no acute distress. HEAD: Normocephalic/atraumatic, EYES: PERRLA, EOMI EARS: Ext canals without abnormality, TMs non-bulging and non-erythematous NOSE: Nares patent bilateral OROPHARYNX: no oral lesions noted, posterior pharynx clear NECK: Supple, no adenopathy LUNGS: Expiratory wheezing, scattered, bilaterally, without noted retractions or tachypnea. SpO2<98> on 2 L of nasal cannula CARDIOVASCULAR: Regular rate and rhythm without noted murmurs ABDOMEN: Soft, non-tender, non-distended with bowel sounds. SKIN: Inspection of the skin reveals no rashes, ulcerations NEUROLOGIC: Alert and oriented x 4. Strength and sensation to light touch were grossly intact x 4. Course Course Course Narrative: This is a 24-year-old female with history and clinical presentation most consistent with asthma exacerbation and some mild improvement EN route after receiving DuoNeb from EMS. Low suspicion for pneumonia or other cardiopulmonary etiologies. Review of all investigation negative for any acute findings to include a negative COVID-19 test. On re-evaluation patient reports feeling much better, but it is noted that while resting her oxygen saturation is approximately 97%, however when she moves or gets up to walk the value drops to 89-90%. Due to concerns with the shortness of breath and negative COVID-19 testing as well as paradoxical SpO2 values she will be scanned to rule out PE. Signed out to Dr Dumont, patient admitted for acute respiratory failure with hypoxia and asthma exacerbation with pending CT angio results. Paged inpatient hospitalist team to discuss case @ [id number]. MDM - SOB/Dyspnea Lab Data Result diagrams: 07/25/20 03:21 07/25/20 03:21 Labs: Lab Results 07/25/20 07/25/20 07/25/20 Range/Units 03:21 03:21 04:36 WBC 8.0 (4.8-10.8) X10*3/uL RBC 4.62 (4.20-5.50) X10*6/uL Hgb 14.4 (12.0-16.0) g/dl Hct 43.3 (37-47) % MCV 93.7 (80-98) fL MCH 31.2 (27.0-33.0) pg MCHC 33.3 (31.0-35.0) g/dl RDW 12.6 (11.0-16.0) % Plt Count 370 D (160-400) X10*3/uL MPV 8.8 L (9.4-12.3) fL Immature Gran % (Auto) 0.3 (0.0-0.4) % Neut % (Auto) 61.8 (45-73) % Lymph % (Auto) 25.9 (20-40) % Atkinson % (Auto) 6.8 (2-11) % Eos % (Auto) 4.4 H (0-4) % Baso % (Auto) 0.8 (0-2) % Lymph # (Auto) 2.1 (1.2-4.9) X10*3/uL Atkinson # (Auto) 0.5 (0.1-1.2) X10*3/uL Eos # (Auto) 0.4 (0.0-0.4) X10*3/uL Baso # (Auto) 0.1 (0.0-0.2) X10*3/uL Abs Immat Gran (auto) 0.02 (0.00-0.03) X10*3/uL Absolute Neuts (auto) 4.9 (2.0-8.3) X10*3/uL Absolute Nucleated RBC 0.000 (0.0-0.012) X10*3/uL Nucleated RBC % (auto) 0.0 (0.0-0.2) /100WBC Sodium 141 (135-145) mmol/L Potassium 3.5 (3.3-5.1) mmol/L Chloride 103 (96-108) mmol/L Carbon Dioxide 28 (22-29) mmol/L Anion Gap 14 (12-20) BUN 10 (9-16) mg/dL Creatinine 0.71 (0.5-1.4) mg/dL Estim Creat Clear Calc 89.4 Estimated GFR > 60 Random Glucose 176 H D (60-115) mg/dL Calcium 9.0 D (8.4-10.2) mg/dL Magnesium 1.8 (1.6-2.6) mg/dL Total Bilirubin 0.5 (0.0-1.0) mg/dL AST 13 D (5-31) U/L ALT 14 (0-31) U/L Alkaline Phosphatase 102 (39-117) U/L Total Protein 6.8 (6.5-8.0) g/dL Albumin 4.0 (3.5-5.0) g/dL Beta HCG, Quant < 2 mIU/mL Coronavirus (PCR) NEGATIVE (Negative) Influenza Type A (PCR) NEGATIVE (Negative) Influenza Type B (PCR) NEGATIVE (Negative) RSV RNA Qual (PCR) NEGATIVE (Negative) ECG Data Attestation: I personally reviewed and interpreted this ECG as follows: Prior ECG tracings: available for review (05/07/2021 no acute changes on comparison) Interpretation: Normal sinus rhythm, HR-88, no evidence of acute ischemia, NM/QRS/QTC are within normal limits. Discharge Plan Discharge Clinical Impression: Acute respiratory failure with hypoxia Asthma exacerbation Qualifiers: Asthma severity: severe Asthma persistence: unspecified Qualified Code(s): J45.901 - Unspecified asthma with (acute) exacerbation Patient Disposition: Admitted As Inpatient
[2020-07-25] MEDS: Albuterol Sulfate (0.083%) 2.5 MG/3 ML VIAL.NEB 10 MG INHALE (02:22)
[2020-07-25] MEDS: methylPREDNISolone Sod Succ/PF 125 MG/2 ML VIAL IVPUSH (02:24)
[2020-07-25 03:26] LABS: MANUAL DIFF FLAG NO
[2020-07-25 03:34] LABS: Basophils Absolute Auto 0.1 X10*3/uL (0.0-0.2); Basophils Percent Auto 0.8 % (0-2); Eosinophils Absolute Auto 0.4 X10*3/uL (0.0-0.4); Eosinophils Percent Auto 4.4 % (0-4); Hematocrit 43.3 % (37-47); Hemoglobin 14.4 g/dl (12.0-16.0); Imm Gran Abs Auto 0.02 X10*3/uL (0.00-0.03); Imm Gran Pct Auto 0.3 % (0.0-0.4); Lymphocytes Absolute Auto 2.1 X10*3/uL (1.2-4.9); Lymphocytes Percent Auto 25.9 % (20-40); Mean Corpuscular HGB Conc 33.3 g/dl (31.0-35.0); Mean Corpuscular Hemoglobin 31.2 pg (27.0-33.0); Mean Corpuscular Volume 93.7 fL (80-98); Mean Platelet Volume 8.8 fL (9.4-12.3); Monocytes Absolute Auto 0.5 X10*3/uL (0.1-1.2); Monocytes Percent Auto 6.8 % (2-11); Neutrophils Absolute Auto 4.9 X10*3/uL (2.0-8.3); Neutrophils Percent Auto 61.8 % (45-73); Platelet Count 370 X10*3/uL (160-400); Red Blood Count 4.62 X10*6/uL (4.20-5.50); Red Cell Distribution Width 12.6 % (11.0-16.0)
[2020-07-25 03:52] LABS: Alanine Aminotransferase 14 U/L (0-31); Alkaline Phosphatase 102 U/L (39-117); Anion Gap 14 (12-20); Aspartate Amino Transferase 13 U/L (5-31); Bilirubin Total 0.5 mg/dL (0.0-1.0); Blood Urea Nitrogen 10 mg/dL (9-16); Carbon Dioxide 28 mmol/L (22-29); Chloride 103 mmol/L (96-108); Creatinine Clr Calc Pharmacy 89.4; Estimated Glomerular Filt Rate > 60; Glucose Random 176 mg/dL (60-115); Magnesium 1.8 mg/dL (1.6-2.6); Potassium 3.5 mmol/L (3.3-5.1); Sodium 141 mmol/L (135-145); Total Protein 6.8 g/dL (6.5-8.0)
[2020-07-25] MEDS: Magnesium Sulfate/D5W 1 GM/100 ML PIGGYBACK IV (04:31)
[2020-07-25 05:19] LABS: Influenza A PCR NEGATIVE (Negative); Influenza B PCR NEGATIVE (Negative); Resp Syncy Virus RNA Qual PCR NEGATIVE (Negative); SARS COV2 PCR INHOUSE NEGATIVE (Negative)
[2020-07-25] MEDS: Albuterol/Iprat 2.5/0.5MG 3 ML AMPUL.NEB INHALE ×4 (05:30→20:20)
--- NOTE | 2020-07-25 06:55 | PC.NURSE ---
received report from jude Liu
[2020-07-25 07:05] LABS: HCG Quantitative < 2 mIU/mL
--- NOTE | 2020-07-25 07:15 | PC.NURSE ---
pt resting in the stretcher watching tv, pt alert and oriented, skin appropriate for ethnicity, respirations even and unlabored, expiratory wheezing through all bases, pt states feeling slightly better after the breathing, sinus tach on the monitor anywhere from 104-115. pt aware of plan for ct to rule out pe
--- NOTE | 2020-07-25 08:12 | PC.NURSE ---
called the methadone clinic[facility] in [place]. spoke with Alissa from the supervisor computer operations service, awaiting a call back
[2020-07-25] MEDS: iohexoL 350 MG/ML 100 ML INFUS..BTL IV (08:28)
--- NOTE | 2020-07-25 08:54 | PC.NURSE ---
called the methadone clinic again, still no aswer
--- NOTE | 2020-07-25 09:54 | PC.NURSE ---
hospitalist at bedside evaluating pt
--- NOTE | 2020-07-25 10:13 | P.HPHOSP_ITS ---
History of Present Illness Date of Service: 07/25/20 <VERNA Mcdonough - Last Filed: 07/25/20 10:25> Chief Complaint: shortness of breath <VERNA Mcdonough - Last Filed: 07/25/20 10:25> This is a 24 year old female with a history of opiate abuse on Methadone, active smoker who presents to the ED with shortness of breath. She reports 4-5 days of difficulty breathing with associated dry cough. She denies fever or chills. She has a previous admission in April for shortness of breath which w as thought to be secondary to chemical pneumonitis from drug use. During that visit she was admitted to the ICU and required BiPAP support. She was 90% on room air per EMS. Her oxygen saturation improved to 98% on 2 L. She did reportedly desaturate with any significant movement. Lab work was unremarkable. Bronchial wall thickening which can be seen in small airway process such as asthma or atypical/viral infection. CTA showed similar changes, no evidence of pulmonary embolism. COVID, flu, RSV PCR negative. She received Solu-Medrol, IV magnesium, 2 breathing treatments but continued to require supplemental oxygen and therefore the decision was made to admit her for further management. At this time patient denies use of any recreational drugs. <VERNA Mcdonough - Last Filed: 07/25/20 10:25> Review of Systems Review of Systems: Yes all other systems are reviewed and are negative <VENRA Mcdonough - Last Filed: 07/25/20 10:25> Constitutional: Constitutional: Denies chills and Denies fever(s) <VERNA Mcdonough Last Filed: 07/25/20 10:25> Cardiovascular: Cardiovascular: Denies chest pain and Reports dyspnea <VERNA Mcdonough Last Filed: 07/25/20 10:25> Respiratory: Respiratory: Reports cough and Reports dyspnea <VERNA Mcdonough Last Filed: 07/25/20 10:25> Gastrointestinal: Gastrointestinal: Denies abdominal pain <VERNA Mcdonough Last Filed: 07/25/20 10:25> [facility] Medical History: Medical History Asthma Opioid abuse Status asthmaticus with COPD (chronic obstructive pulmonary disease) <VERNA Mcdonough - Last Filed: 07/25/20 10:25> Functional capacity: independent ambulation <VERNA Mcdonough - Last Filed: 07/25/20 10:25> Family History: Family History (Updated 07/25/20 @ 10:19 by VERNA Mcdonough) Sister Asthma <VERNA Mcdonough - Last Filed: 07/25/20 10:25> Family history: reviewed and not pertinent <VERNA Mcdonough - Last Filed: 07/25/20 10:25> Social History: Social History (Updated 07/25/20 @ 10:20 by VERNA Mcdonough) Household Members: Family Housing: House Alcohol intake: current Alcohol intake frequency: holidays/special occasions only Smoking Status: Current every day smoker Tobacco Type: Cigarette Packs Per Day: 0.5 Cigarettes Per Day: 10.0 Years Smoked: 4 Smoked in Last 30 Days: Yes Substance Use Type: Painkillers Advance Directives: No service: No Current occupational status: employed <VERNA Mcdonough - Last Filed: 07/25/20 10:25> Meds Allergies/Adverse reactions: Allergies Allergy/AdvReac Type Severity Reaction Status Date / Time No Known Allergies Allergy Unverified 02/13/20 18:32 [No Known Allergies*] <VERNA Mcdonough - Last Filed: 07/25/20 10:25> Active Medications: Current Medications Generic Name Dose Route Start Last Admin Trade Name Bertq PRN Reason Stop Dose Admin Nicotine 7 mg 07/25/20 10:10 Nicotine 7 Mg Patch.[id number] TRANSDERMA DAILY VIN <VERNA Mcdonough - Last Filed: 07/25/20 10:25> Home medications: Home Medications Medication Instructions Recorded Confirmed Last Taken Type methadone [Methadone Intensol] 25 mg PO DAILY 05/27/20 07/25/20 07/24/20 History <VERNA Mcdonough - Last Filed: 07/25/20 10:25> Physical Exam Vital Signs and Narrative: Vital Signs: Last Vital Signs Temp 98.5 F 07/25/20 09:39 Pulse 118 H 07/25/20 09:39 Resp 20 07/25/20 09:39 BP 130/86 07/25/20 09:39 Pulse Ox 93 07/25/20 09:39 Body Mass Index 23.2 <VERNA Mcdonough - Last Filed: 07/25/20 10:25> Const: General: cooperative, comfortable, alert and awake <VERNA Mcdonough - Last Filed: 07/25/20 10:25> Nutritional Appearance: well nourished <VERNA Mcdonough - Last Filed: 07/25/20 10:25> Orientation/consciousness: patient oriented x3 <VERNA Mcdonough - Last Filed: 07/25/20 10:25> HENMT: Head: Yes normocephalic and Yes atraumatic <VERNA Mcdonough - Last Filed: 07/25/20 10:25> Eyes: Sclerae: sclerae normal <VERNA Mcdonough - Last Filed: 07/25/20 10:25> Chest: Chest palpation & inspection: normal inspection of the chest <VERNA Mcdonough - Last Filed: 07/25/20 10:25> Resp: Effort & Inspection: normal respiratory effort, able to speak in complete sentences and no respiratory distress <VERNA Mcdonough - Last Filed: 07/25/20 10:25> Auscultation: wheezes throughout <VERNA Mcdonough - Last Filed: 07/25/20 10:25> Cardio: Rate: regular rate <VERNA Mcdonough - Last Filed: 07/25/20 10:25> Rhythm: regular rhythm <VERNA Mcdonough - Last Filed: 07/25/20 10:25> GI: Palpation (GI): Soft to palpation and nontender <VERNA Mcdonough - Last Filed: 07/25/20 10:25> Skin: General skin exam: no rashes or lesions noted <VERNA Mcdonough - Last Filed: 07/25/20 10:25> Neuro: General: patient oriented x3 <VERNA Mcdonough - Last Filed: 07/25/20 10:25> Cranial nerves: Yes CN's II-XII intact bilaterally and Yes Bilaterally intact EOM present <VERNA Mcdonough - Last Filed: 07/25/20 10:25> Extrem: General: Yes normal to inspection <VERNA Mcdonough - Last Filed: 07/25/20 10:25> Results Labs CBC and Chem 7: : 07/25/20 03:21 07/25/20 03:21 <VERNA Mcdonough - Last Filed: 07/25/20 10:25> Labs: Laboratory Results - last 24 hr 07/25/20 07/25/20 07/25/20 03:21 03:21 04:36 MCV 93.7 MCH 31.2 MCHC 33.3 RDW 12.6 Plt Count 370 D MPV 8.8 L Immature Gran % (Auto) 0.3 Neut % (Auto) 61.8 Lymph % (Auto) 25.9 Wright % (Auto) 6.8 Eos % (Auto) 4.4 H Baso % (Auto) 0.8 Lymph # (Auto) 2.1 Wright # (Auto) 0.5 Eos # (Auto) 0.4 Baso # (Auto) 0.1 Abs Immat Gran (auto) 0.02 Absolute Neuts (auto) 4.9 Absolute Nucleated RBC 0.000 Nucleated RBC % (auto) 0.0 Anion Gap 14 Estim Creat Clear Calc 89.4 Estimated GFR > 60 Random Glucose 176 H D Calcium 9.0 D Magnesium 1.8 Total Bilirubin 0.5 AST 13 D ALT 14 Alkaline Phosphatase 102 Total Protein 6.8 Albumin 4.0 Beta HCG, Quant < 2 Coronavirus (PCR) NEGATIVE Influenza Type A (PCR) NEGATIVE Influenza Type B (PCR) NEGATIVE RSV RNA Qual (PCR) NEGATIVE <VERNA Mcdonough - Last Filed: 07/25/20 10:25> Imaging Radiologist's Impressions: Impressions Chest X-Ray 07/25/20 01:48 IMPRESSION: Hyperexpanded lungs. Bronchial wall thickening can be seen with a small airways process such as asthma or atypical/viral infection. Chest CTA 07/25/20 06:25 IMPRESSION: No evidence for pulmonary embolism. As seen on prior CT April 2020, there are scattered areas of bronchial wall thickening and bronchial filling defects as well as new ground-glass opacity in the right lower lobe suggestive of a small airways process such as asthma or infection. The previously noted ground-glass opacity more anteriorly in the right lower lobe has cleared in the interim. VTE: Negative <VERNA Mcdonough - Last Filed: 07/25/20 10:25> Assessment and Plan (1) Acute respiratory failure with hypoxia: Status: Acute <VERNA Mcdonough - Last Filed: 07/25/20 10:25> (2) Tobacco dependence: Status: Acute <VERNA Mcdonough - Last Filed: 07/25/20 10:25> This is a 24-year-old female with history of tobacco dependence, opiate abuse on methadone who presents to the emergency department with s hortness of breath found to be hypoxic Acute respiratory failure with hypoxia 90% on arrival, O2 reportedly dipped below 90 with movement. Has been able to be weaned off oxygen ? r/t underlying undiagnosed asthma. has had admission for chemical pneumonitis r/t drug use as well, although she denies the use of drugs at this time -solumedrol -scheduled and prn breathing treatments -supplemental o2 prn -tox screen Tobacco dependence -NRT Opiate dependence -Continue methadone when dose confirmed code status - full code DVT ppx - boots this case was discussed with Dr. Sharma <VERNA Mcdonough - Last Filed: 07/25/20 10:25>
--- NOTE | 2020-07-25 10:45 | PC.NURSE ---
called pharmacy for the nicotine patch
[2020-07-25] MEDS: Nicotine 7 MG PATCH.TD24 TRANSDERMA (11:28)
[2020-07-25 12:07] LABS: D Dimer < 200 NG/ML
--- NOTE | 2020-07-25 13:14 | PC.NURSE ---
pt is currently resting in the stretcher, respirations even and unlabored.
--- NOTE | 2020-07-25 15:12 | PC.NURSE ---
pt sleeping but sats dropped down to 89-90% on 2l, pt easily arousable, sinus tach on the monitor ranges from 120-110's
[2020-07-25] MEDS: 0.9 % Sodium Chloride Flush 3 ML SYRINGE IVFLUSH (16:25)
--- NOTE | 2020-07-25 18:15 | PC.NURSE ---
pt is currently eating dinner, in no apparent distress at this time, vs stable, pt awaiting room assignment
--- NOTE | 2020-07-25 18:32 | PC.NURSE ---
called meds/surg to give report, awaiting a call back
--- NOTE | 2020-07-25 18:56 | PC.NURSE ---
report given to meds/med surg rn
[2020-07-26] MEDS: 0.9 % Sodium Chloride Flush 3 ML SYRINGE IVFLUSH ×2 (00:24→08:58)
[2020-07-26 04:00] VITALS: BP 119/69; PULSE 83; RESP 16; TEMP 36.5; O2SAT 93
[2020-07-26 07:07] LABS: Basophils Percent Auto 0.1 % (0-2); Hematocrit 38.5 % (37-47); Hemoglobin 12.6 g/dl (12.0-16.0); Imm Gran Abs Auto 0.08 X10*3/uL (0.00-0.03); Imm Gran Pct Auto 0.4 % (0.0-0.4); Lymphocytes Percent Auto 5.3 % (20-40); MANUAL DIFF FLAG SCAN; Mean Corpuscular HGB Conc 32.7 g/dl (31.0-35.0); Mean Corpuscular Hemoglobin 30.3 pg (27.0-33.0); Mean Corpuscular Volume 92.5 fL (80-98); Mean Platelet Volume 9.1 fL (9.4-12.3); Monocytes Absolute Auto 0.5 X10*3/uL (0.1-1.2); Monocytes Percent Auto 2.8 % (2-11); Neutrophils Absolute Auto 16.5 X10*3/uL (2.0-8.3); Neutrophils Percent Auto 91.4 % (45-73); Platelet Count 424 X10*3/uL (160-400); Red Blood Count 4.16 X10*6/uL (4.20-5.50); Red Cell Distribution Width 12.9 % (11.0-16.0); SCAN SMEAR FLAG 1
[2020-07-26] MEDS: Albuterol/Iprat 2.5/0.5MG 3 ML AMPUL.NEB INHALE ×2 (07:17→11:10)
[2020-07-26 07:18] VITALS: PULSE 76; O2SAT 96
[2020-07-26 07:47] LABS: Anion Gap 14 (12-20); Blood Urea Nitrogen 8 mg/dL (9-16); Calcium 9.2 mg/dL (8.4-10.2); Carbon Dioxide 24 mmol/L (22-29); Chloride 104 mmol/L (96-108); Creatinine Clr Calc Pharmacy 97.7; Estimated Glomerular Filt Rate > 60; Glucose Random 143 mg/dL (60-115); Potassium 4.7 mmol/L (3.3-5.1); Sodium 137 mmol/L (135-145)
[2020-07-26 07:52] LABS: SLIDE REVIEW VERIFIED
[2020-07-26 08:00] VITALS: BP 131/66; PULSE 90; RESP 19; TEMP 36.4; O2SAT 94
[2020-07-26] MEDS: Doxycycline Hyclate 100 MG in 0.9 % Sodium Chloride 250 ML 166.67 MG IV (08:57)
[2020-07-26] MEDS: Nicotine 7 MG PATCH.TD24 TRANSDERMA (08:58)
--- NOTE | 2020-07-26 09:07 | MHC.CM.PN ---
NO RESPONSE FROM [facility]. CALLED HOSPITALIST TO ASK IF SOMEONE WOULD BE CALLING. THIS [employer] CALLED HOSPICE AT [phone] CALL WAS PUT THROUGH TO RN WHO DOES NOT COVER REFERRALS. CALL THEN PLACED TO [facility], BUT RN WHO ANSWERED IS PER-BERTHA AND NOT YET FAMILAR WITH REFERRAL SYSTEM AND WHO MAY BE COVERING. REFERRAL THEN PLACED TO [facility]. CASE MANAGEMENT FOLLOWING. HOSPITALIST MADE AWARE.
--- NOTE | 2020-07-26 10:09 | MHC.CM.PN ---
PATIENT IS INDEPENDENT WITH HER ADLS. SHE IS ACTIVE WITH [facility] IN [place] FOR HER METHADONE. SHE IS INTERESTED IN A CONSULT FOR SUBOXONE MESSAGE LEFT FOR [facility] @ [phone] TO CALL THIS COMMUNICATIONS CONSULTANT ON MONDAY AND WHY. THIS COMMUNICATIONS CONSULTANT WILL CONTACT THIS COMMUNICATIONS CONSULTANT ONCE CONTACT IS MADE AND A PLAN HAS BEEN ESTABLISHED. PATIENT AND P.A. AWARE
--- NOTE | 2020-07-26 10:21 | P.DS_ITS ---
DS: Providers Provider Date of Service: 07/26/20 <VERNA Mcdonough - Last Filed: 07/26/20 10:31> 07/26/20 <Emerson Sharma MD - Last Filed: 07/26/20 14:07> Date of admission: 07/25/20 10:09 <VERNA Mcdonough - Last Filed: 07/26/20 10:31> Primary care physician: [facility] <VERNA Mcdonough - Last Filed: 07/26/20 10:31> DS: Diagnosis Discharge Diagnosis (1) Acute respiratory failure with hypoxia: Status: Acute <VERNA Mcdonough - Last Filed: 07/26/20 10:31> (2) Tobacco dependence: Status: Acute <VERNA Mcdonough - Last Filed: 07/26/20 10:31> DS: Medications Discharge Medications Home Medications: Home Medications Medication Instructions Recorded Confirmed methadone [Methadone Intensol] 25 mg PO DAILY 05/27/20 07/25/20 <VERNA Mcdonough - Last Filed: 07/26/20 10:31> DS: Summary Hospital Course Hospital Course: This is a 24 year old female with a history of opiate abuse on Methadone, active smoker who presents to the ED with shortness of breath. She reports 4-5 days of difficulty breathing with associated dry cough. She denies fever or chills. She has a previous admission in April for shortness of breath which was thought to be secondary to chemical pneumonitis from drug use. During that visit she was admitted to the ICU and required BiPAP support. She was 90% on room air per EMS. Her oxygen saturation improved to 98% on 2 L. She did reportedly desaturate with any significant movement. Lab work was unremarkable. Bronchial wall thickening which can be seen in small airway process such as asthma or atypical/viral infection. CTA showed similar changes, no evidence of pulmonary embolism. COVID, flu, RSV PCR negative. She received Solu-Medrol, IV magnesium, 2 breathing treatments but continued to require supplemental oxygen and therefore the decision was made to admit her for further management. At this time patient denies use of any recreational drugs. She was admitted to the medical surgical floor. Acute respiratory failure with hypoxia. 90% on arrival, O2 reportedly dipped below 90 with movement. Was able to be weaned off oxygen and has been saturating in the mid-90s on room air since yesterday afternoon. Her breathing improved more quickly then expected and she is now stable for discharge. This episode is likely related to the use of heroin which she admitted to snorting. She was treated with IV solumedrol, and docycycline and breathing treatments. She will be discharged home with PO docycyline, prednisone and albuterol to use prn. Opiate dependence She was continue on her home dose of methadone. An appointment will be made at the [facility] for later this week to discuss possibility of transitioning to suboxone. Someone will call her with an appointment time. Pt seen and examined. Case d/w VERNA Davila Agree with her documentation as above. Stable for d/c <VERNA Mcdonough - Last Filed: 07/26/20 10:31> Time Spent with Patient Time attestation: Total time spent providing and/or coordinating discharge services: <VERNA Mcdonough Last Filed: 07/26/20 10:31> Discharge coordination time: Greater than 30 minutes <VERNA Mcdonough Last Filed: 07/26/20 10:31> Physical Exam Vital Signs: Vital Signs: Last Vital Signs Temp 97.6 F 07/26/20 08:00 Pulse 90 07/26/20 08:00 Resp 19 07/26/20 08:00 BP 131/66 07/26/20 08:00 Pulse Ox 94 07/26/20 08:00 Body Mass Index 23.2 <VERNA Mcdonough - Last Filed: 07/26/20 10:31> Const: General: cooperative, comfortable, no acute distress, alert and awake <VERNA Mcdonough Last Filed: 07/26/20 10:31> Nutritional Appearance: well nourished <VERNA Mcdonough Last Filed: 07/26/20 10:31> Orientation/consciousness: patient oriented x3 <VERNA Mcdonough Last Filed: 07/26/20 10:31> HENMT: Head: Yes normocephalic and Yes atraumatic <VERNA Mcdonough Last Filed: 07/26/20 10:31> Eyes: Sclerae: sclerae normal <VERNA Mcdonough - Last Filed: 07/26/20 10:31> Chest: Chest palpation & inspection: normal inspection of the chest <VERNA Mcdonough - Last Filed: 07/26/20 10:31> Resp: Other: scattered wheezes <VERNA Mcdonough - Last Filed: 07/26/20 10:31> Effort & Inspection: normal respiratory effort, able to speak in complete sentences and no respiratory distress <VERNA Mcdonough - Last Filed: 07/26/20 10:31> Cardio: Rate: regular rate <VERNA Mcdonough - Last Filed: 07/26/20 10:31> Rhythm: regular rhythm <VERNA Mcdonough - Last Filed: 07/26/20 10:31> GI: Palpation (GI): Soft to palpation and nontender <VERNA Mcdonough - Last Filed: 07/26/20 10:31> Skin: General skin exam: no rashes or lesions noted <VERNA Mcdonough - Last Filed: 07/26/20 10:31> Neuro: General: patient oriented x3 <VERNA Mcdonough - Last Filed: 07/26/20 10:31> Cranial nerves: Yes CN's II-XII intact bilaterally and Yes Bilaterally intact EOM present <VERNA Mcdonough - Last Filed: 07/26/20 10:31> Extrem: General: Yes normal to inspection <VERNA Mcdonough - Last Filed: 07/26/20 10:31> DS: Data Data Completed and Pending Labs on day of discharge: Laboratory Results - last 24 hr 07/25/20 07/26/20 07/26/20 11:46 06:41 06:41 WBC 18.0 H RBC 4.16 L Hgb 12.6 Hct 38.5 MCV 92.5 MCH 30.3 MCHC 32.7 RDW 12.9 Plt Count 424 H MPV 9.1 L Immature Gran % (Auto) 0.4 Neut % (Auto) 91.4 H Lymph % (Auto) 5.3 L [place] % (Auto) 2.8 Eos % (Auto) 0.0 Baso % (Auto) 0.1 Lymph # (Auto) 1.0 L [place] # (Auto) 0.5 Eos # (Auto) 0.0 Baso # (Auto) 0.0 Abs Immat Gran (auto) 0.08 H Absolute Neuts (auto) 16.5 H Absolute Nucleated RBC 0.000 Nucleated RBC % (auto) 0.0 Smear Tech's Comments VERIFIED D-Dimer < 200 Sodium 137 Potassium 4.7 D Chloride 104 Carbon Dioxide 24 Anion Gap 14 BUN 8 L Creatinine 0.65 Estim Creat Clear Calc 97.7 Estimated GFR > 60 Random Glucose 143 H Calcium 9.2 <VERNA Mcdonough - Last Filed: 07/26/20 10:31> Discharge Plan Discharge Patient Disposition: Home, Self-Care <VERNA Mcdonough - Last Filed: 07/26/20 10:31> Referrals: [facility] [Other] (BANDAR IS DISCHARGED HOME - SELF CARE AND WILL RESUME HER SERVICES AT [facility]. [facility] WILL CALL TO SCHEDULE A CONSULT VISIT WITH YOU. PLEASE FEEL FREE TO REACH OUT TO THEM AT [phone].) [place],[facility] [Primary Care Provider] - <VERNA Mcdonough - Last Filed: 07/26/20 10:31> Discharge Medications: New doxycycline hyclate 100 mg capsule 100 mg PO BID 5 Days Qty: 10 RF: 0 albuterol sulfate 90 mcg/actuation HFA aerosol inhaler 2 puff inhalation Q4-6H PRN (Reason: shortness of breath or wheezing) Qty: 8.5 RF: 0 prednisone 20 mg tablet 40 mg PO DAILY 5 Days Qty: 10 RF: 0 Continued methadone [Methadone Intensol] 10 mg/mL Concentrate 25 mg PO DAILY RF: 0 <VERNA Mcdonough Last Filed: 07/26/20 10:31> Discharge Orders: Discharge Order (Routine); Ordered 07/26/20 Ordered By: Jennie Aguirre <VERNA Mcdonough Last Filed: 07/26/20 10:31> Activity on Discharge: As tolerated <VERNA Mcdonough Last Filed: 07/26/20 10:31> As tolerated <Emerson Sharma MD - Last Filed: 07/26/20 14:07> Stand Alone Forms: Patient Portal Discharge page <VERNA Mcdonough - Last Filed: 07/26/20 10:31> Care Plan Goals: stay healthy and out of the hospital <VERNA Mcdonough - Last Filed: 07/26/20 10:31> Health Concerns: substance abuse <VERNA Mcdonough - Last Filed: 07/26/20 10:31> Plan of Treatment: you breathing problems may be related to your substance use. Recommend complete avoidance of all drugs. You will be discharged with antibiotics, prednisone and albuterol Please return to the ED if you experience shortness of breath <VERNA Mcdonough - Last Filed: 07/26/20 10:31> Discharge Date/Time: 07/26/20 12:27 <VERNA Mcdonough - Last Filed: 07/26/20 10:31>
[2020-07-26 11:10] VITALS: PULSE 82; O2SAT 96
== END 2020-07-26 12:27 | disposition home or self-care (01) | DRG 816 ==
LOC: HO.ED 07:05 → HO.EDOVER 10:57 → HO.S3 18:11
PROVIDERS: Physician Assistant Medical; Admitting Provider Family Medicine; Emergency Provider Student in an Organized Health Care Education/Training Program; Visit Provider Family Medicine
DX: T40.1X1A Poisoning by heroin, accidental (unintentional), initial encounter (principal); J96.01 Acute respiratory failure with hypoxia; J45.901 Unspecified asthma with (acute) exacerbation; F11.20 Opioid dependence, uncomplicated; Z20.822 Contact with and (suspected) exposure to COVID-19; Z71.6 Tobacco abuse counseling; Y92.9 Unspecified place or not applicable
CPT/HCPCS: 0241U; 36415; 71045; 71275; 80048; 80053; 83735; 84702; 85025; 85379; 93005; 94640; 94644; 96365; 96375; 99285; J2920; J2930; J3475; Q9967